=== PATIENT | male | born 1925 | race African-American/Black ===

== ENCOUNTER 2016-07-02 12:12 | Emergency (ER) | payer OTHER ==
--- NOTE | ~2016-07-02 | CO ---
Unit #: [id number] #: [id number] Patient: TARAH MOORE [id number] [address] [place], [place] [address] [id number] MR#: [id number] NAME: TARAH MOORE ROOM: Age: 89 Sex: M Admission Date: 07/02/2016 : 1925 Attending Physician: Siva Gibbs M.D. Primary Care Physician: Bear Figueroa M.D. Consultation Date: 07/02/2016 CONSULTATION REPORT HISTORY AND EXAM Mr. Moore is an 89-year-old gentleman who is a prison resident, who was sent to [facility] ER from the prison because of an unstageable but necrotic sacral pressure ulcer. Patient was unaccompanied by power of trust and estates attorney or any prison staff. He is demented and unable to answer any questions. It was noted on his medicine list that he was on Eliquis. 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 It is within 2 cm of the anal verge. I was asked to see the patient by the ER physicians and after examination, I called his family contact, . Cody Moore, explained the situation to Mr. Moore and told him that I felt that he needed to have a debridement if the family wanted to proceed but because of its proximity to the anal verge, fecal soiling was highly likely and that a diverting colostomy would probably be advantageous. Also, discussed with Mr. Moore that since he is on Eliquis that is going to need to be held prior to surgery to decrease his bleeding risk. I answered all of Mr. Moore's questions concerning his father. ALLERGIES No allergies to medication. PAST MEDICAL HISTORY 1. Hypertension. 2. Spontaneous pneumothorax. 3. Osteoarthritis. 4. Prostate cancer with bone mets. 5. Chronic urinary tract infections. 6. Chronic obstructive pulmonary disease. 7. Generalized muscle weakness with chronic pain. 8. Neoplasm of the kidney. 9. Hyperlipidemia. 10. Decreased vision. 11. Gout. 12. Chronic bronchitis. 13. Atherosclerotic coronary artery disease. 14. Depression. 15. Pressure sore. 16. Reflux. 17. Anxiety. 18. Allergic rhinitis. MEDICATIONS Unit #: [id number] #: [id number] Patient: TARAH MOORE Medications are listed as: 1. Cardizem 60 mg three times a day. 2. Voca 5 mg p.r.n. q.4 hours. 3. Allopurinol 100 mg daily. 4. Amiodarone 200 mg daily. 5. Aspirin 81 mg daily. 6. Eliquis 2.5 mg twice a day. 7. Bisacodyl 10 mg suppository p.r.n. 8. Proscar 5 mg daily. 9. Alfin 400 mg tablet daily. 10. Lactobacillus one capsule three times a day. 11. Lovastatin 20 mg daily. 12. Protonix 40 mg daily. 13. MiraLax 17 g daily. 14. Flomax 0.4 mg daily. 15. Trazodone 150 mg daily. 16. Ipratropium albuterol 0.5/3 mg nebulizer four times a day. 17. Tylenol p.r.n. 18. Betadine topical solution twice a day. 19. Prostat twice a day. 20. Vitamins, minerals. 21. Niferex 150 mg daily. 22. TwoCal High Nitrogen supplement feeding three times a day. 23. Zofran 4 mg p.r.n. 24. Vitamin D 50,000 units weekly. 25. Calcium citrate one tablet twice a day. 26. Remeron 15 mg daily. 27. Zoloft 100 mg daily. FAMILY HISTORY Unremarkable. SOCIAL HISTORY He is a prison resident. No tobacco or alcohol. REVIEW OF SYSTEMS Unobtainable. PHYSICAL EXAMINATION VITAL SIGNS: On examination in the emergency room, temperature is 98.6, pulse 83, respirations 24 and unlabored, blood pressure 129/68. GENERAL: Patient is alert but unable to have any meaningful response to questions. HEENT: Unremarkable. CARDIAC: Regular rhythm. LUNGS: Clear. ABDOMEN: Soft. EXTREMITIES: No edema. Stage IV sacral pressure ulcer. DIAGNOSTIC STUDIES LABORATORY: No laboratories. ASSESSMENT AND PLAN An 89-year-old prison resident with stage IV sacral pressure sore as discussed. I had a long discussion with the patient's son who is his primary healthcare surrogate and power of trust and estates attorney and discussed surgery to include debridement of the sacral decubitus and diverting colostomy. He is agreeable. Because the patient is anticoagulated, he will be sent Unit #: [id number] #: [id number] Patient: TARAH MOORE back to the prison. His anticoagulation held and he will be scheduled to come in the morning of surgery and admitted postoperatively. Dictated by... Mayda Baker TD: 07/02/2016 15:51 JOB #: [id number] CC: Bear Figueroa M.D. CONSULTATION REPORT Page 1 of 1 X Siva Fonseca MD X CONSULTATION REPORT
[~2016-07-02 12:12] MED LIST: ACULAR; ASPIRIN81 M2 PO; BRIMONIDINE; FLOMAX0.4 M1 PO; LOTENSIN20 MG PO; MEVACOR20 M1 PO; MULTI VITAMIN1 EACH PO; PRED FORTE1 ML OS; PREDNISOLONE; PROTONIX PO; THERAPEUTIC VIT1 TA3 PO; TIAZAC180 MG PO; VIGAMOX; ZYLOPRIM100 MG PO
[2016-07-16] MEDS ORDERED: CARDIZEM60 M1 PO (09:29)
[2016-07-16] MEDS ORDERED: AMIODARONE HCL200 MG (09:30)
[2016-07-16] MEDS ORDERED: GENTLE LAXATIVE10 MG PR (09:31)
[2016-07-16] MEDS ORDERED: ALLFEN400 MG PO (09:32)
[2016-07-16] MEDS ORDERED: PROSCAR5 MG PO (09:32)
[2016-07-16] MEDS ORDERED: ACIDOPHILUS1 EACH PO (09:33)
[2016-07-16] MEDS ORDERED: LOVASTATIN20 M1 PO (09:33)
[2016-07-16] MEDS ORDERED: MIRALAX119 GM PO (09:34)
[2016-07-16] MEDS ORDERED: DESYREL50 MG (09:35)
[2016-07-16] MEDS ORDERED: IPRAT-ALBUT 0.5-3 ML INH (09:36)
[2016-07-16] MEDS ORDERED: ACETAMINOPHEN500 M7 PO (09:36)
[2016-07-16] MEDS ORDERED: [UNRECOGNIZED DRUG - OTHER] (09:37)
[2016-07-16] MEDS ORDERED: VITAMIN D SL (09:38)
[2016-07-16] MEDS ORDERED: NIFEREX (09:38)
[2016-07-16] MEDS ORDERED: MINERALS SL (09:38)
[2016-07-16] MEDS ORDERED: CALCIUM CITRAT1 EAC4 PO (09:39)
[2016-07-16] MEDS ORDERED: ZOFRAN PO (09:39)
[2016-07-16] MEDS ORDERED: REMERON15 MG PO (09:40)
[2016-07-16] MEDS ORDERED: ELIQUIS2.5 MG PO (09:40)
[2016-07-16] MEDS ORDERED: ZOLOFT100 MG PO (09:40)
[2016-07-16] MEDS ORDERED: NORCO 7.5-3251 EACH PO (09:41)
[2016-07-16] MEDS ORDERED: ROCEPHIN IM (09:41)
[2016-07-16] MEDS ORDERED: VITAMIN D32000 UNI1 PO (09:42)
== END 2016-07-02 16:15 | disposition home or self-care (01) ==
LOC: CED 12:12
DX: L89.159 Pressure ulcer of sacral region, unspecified stage (principal); I10 Essential (primary) hypertension; J44.9 Chronic obstructive pulmonary disease, unspecified; Z79.82 Long term (current) use of aspirin; Z79.899 Other long term (current) drug therapy
CPT/HCPCS: 99283

== ENCOUNTER 2016-07-22 10:07 | Observation (INO) | payer OTHER ==
--- NOTE | ~2016-07-22 | EKG ---
PATIENT: TARAH MOORE UNIT #: [id number] Ventricular Rate: 78 BPM Atrial Rate: 78 BPM P-R Interval: 228 ms QRS Duration: 80 ms Q-T Interval: 396 ms QTC Calculation(Bezet): 451 ms P Austin: 57 degrees Calculated R Austin: 10 degrees Calculated T Austin: 12 degrees Diagnosis Line: Sinus rhythm with PAC'sin a pattern of bigeminy Diagnosis Line: Otherwise normal ECG Diagnosis Line: When compared with ECG of 17-JUL-2012 06:17, Diagnosis Line: Vent. rate has increased BY 26 BPM Diagnosis Line: Confirmed by MARIELENA HDZ MD ([id number]) on Diagnosis Line: 07/24/2016 1:05:04 PM INTERPRETING MD: CHARLY
--- NOTE | ~2016-07-22 | DS ---
Unit #: [id number] #: [id number] Patient: TARAH MOORE [id number] [address] [address] [id number] I MR#: [id number] NAME: TARAH MOORE ROOM: [facility] Age: 89 Sex: M Admission Date: 07/22/2016 : 1925 Discharge Date: 07/23/2016 Attending Physician: Siva Fonseca M.D. Primary Care Physician: Bear Figueroa M.D. DISCHARGE SUMMARY HISTORY Mr. Moore was brought into the hospital yesterday and taken directly to surgery for debridement of a chronic stage 4 sacral decubitus. Because of chronic fecal soiling, a diverting colostomy was also performed. He was kept overnight in the hospital to ensure that there was no bleeding from the wound and that his ostomy remained viable. This morning he is afebrile with stable vital signs. His ostomy is viable and functioning, and his sacral wound is clean. We will initiate dressing changes and allow the patient to return to the residential today. He will be discharged back to the residential today to return to his normal diet and medications. His urine appeared to have some sediment. A urinalysis was obtained, and it was consistent with possible urinary tract infection. Culture is pending at this time, but we will send him home on some Levaquin for 7 days. He is to follow up in my office in 2 weeks for wound check. There are no abdominal incisions that need care. Routine ostomy care at the residential can be performed. Dictated by... Siva Fonseca M.D. SHAYE/jony TD: 07/23/2016 12:07 JOB #: [id number] DISCHARGE SUMMARY Page 1 of 1 X Siva Fonseca MD DISCHARGE SUMMARY
[~2016-07-22 10:07] MED LIST changes: +ACETAMINOPHEN500 M7 PO; +ACIDOPHILUS1 EACH PO; +ALLFEN400 MG PO; +AMIODARONE HCL200 MG; +CALCIUM CITRAT1 EAC4 PO; +CARDIZEM60 M1 PO; +DESYREL50 MG; +ELIQUIS2.5 MG PO; +GENTLE LAXATIVE10 MG PR; +IPRAT-ALBUT 0.5-3 ML INH; +LOVASTATIN20 M1 PO; +MINERALS SL; +MIRALAX119 GM PO; +NIFEREX; +NORCO 7.5-3251 EACH PO; +PROSCAR5 MG PO; +REMERON15 MG PO; +ROCEPHIN IM; +VITAMIN D SL; +VITAMIN D32000 UNI1 PO; +ZOFRAN PO; +ZOLOFT100 MG PO; +[UNRECOGNIZED DRUG - OTHER]
[2016-07-22 12:00] LABS: BASOPHIL# 0.1 X10e3 (0-0.3); BASOPHIL% 1.3 % (0-2.5); EOSINOPHIL# 0.3 X10e3 (0-0.7); EOSINOPHIL% 3.7 % (0.0-7.0); HEMATOCRIT 27.8 % (38.0-50.0); HEMOGLOBIN 8.7 gm/dL (13.0-16.0); LYMPHOCYTE# 1.5 X10e3 (1.0-3.5); LYMPHOCYTE% 18.7 % (17.0-45.0); MEAN CELL VOLUME 82.4 FL (83-96); MEAN CORPUSCULAR HEMOGLOBIN 25.7 PG (28-34); MEAN CORPUSCULAR HGB CONC 31.2 g/dL (30-36); MEAN PLATELET VOLUME 8.1 FL (6.5-11.5); MONOCYTE# 0.7 X10e3 (0-1.0); MONOCYTE% 8.4 % (3.0-12.0); NEUTROPHIL# 5.4 X10e3 (1.5-7.1); NEUTROPHIL% 67.9 % (40-75); PLATELET COUNT 332 X10e3 (140-420); RED BLOOD COUNT 3.38 X10e (3.90-5.60); RED CELL DISTRIBUTION WIDTH 22.1 % (11.0-15.5); WHITE BLOOD COUNT 7.9 X10e3 (4.0-10.5)
[2016-07-22 12:01] LABS: DIFF IND YES
[2016-07-22 12:06] LABS: INR 1.1; PARTIAL THROMBOPLASTIN TIME 23.1 SECONDS (23.5-31.3)
[2016-07-22 12:29] LABS: PLATELET ESTIMATE NORMAL (NORMAL)
[2016-07-22 12:31] LABS: ACANTHOCYTES PRESENT; ELLIPTOCYTES PRESENT; HYPOCHROMIA MOD; SCHISTOCYTES PRESENT
[2016-07-22 12:32] LABS: POLYCHROMASIA SL
[2016-07-22 12:33] LABS: OVALOCYTES PRESENT; TARGET CELLS SL
[2016-07-22 16:57] LABS: URINE APPEARANCE CLEAR; URINE BILIRUBIN NEG (NEG); URINE BLOOD 3+ (NEG); URINE COLOR YELLOW; URINE GLUCOSE NEG (NEG); URINE KETONE NEG (NEG); URINE LEUKOCYTE ESTERASE 3+ (NEG); URINE NITRATE NEG (NEG); URINE PROTEIN 1+ (NEG); URINE SPECIFIC GRAVITY 1.024 (1.003-1.035); URINE UROBILINOGEN 0.2 MG/DL (NEG)
[2016-07-22 16:59] LABS: CULTURE INDICATED? YES; URBCS1 AUWI 200-300 /[HPF] (0-2); URINE BACTERIA AUWI NEG (NEGATIVE); URINE SQUAMOUS EPITHELIAL CELL FEW /[HPF]; UWBCS1 AUWI 25-50 (0-5)
== END 2016-07-23 15:50 ==
LOC: CSUR 10:07 → C4C 14:44 → CPACUOF 14:44 → CSUR 14:44 → C4C 15:22 → CPACUOF 15:22 → C4C 20:59 → CPACUOF 20:59 → C4C 07-23 15:50
PROVIDERS: Specialist
DX: L89.154 Pressure ulcer of sacral region, stage 4 (principal); R15.1 Fecal smearing; C61 Malignant neoplasm of prostate; C79.51 Secondary malignant neoplasm of bone; Z23 Encounter for immunization; I10 Essential (primary) hypertension; J44.9 Chronic obstructive pulmonary disease, unspecified; M19.90 Unspecified osteoarthritis, unspecified site; E78.5 Hyperlipidemia, unspecified; K21.9 Gastro-esophageal reflux disease without esophagitis; I25.10 Atherosclerotic heart disease of native coronary artery without angina pectoris; Z79.01 Long term (current) use of anticoagulants; F41.9 Anxiety disorder, unspecified
CPT/HCPCS: 81003; 82947; 85025; 85610; 85730; 86850; 86900; 86901; 87086; 90732; 93005; C1713; G0009; G0378; J2543; J2710; J3010

== ENCOUNTER 2016-07-27 10:38 | Inpatient (IN) | payer OTHER ==
--- NOTE | ~2016-07-27 | CR7 ---
[facility] A Service of [facility] & [facility] RADIOLOGY TEXT RESULTS PATIENT: TARAH MOORE LOCATION: [address] : [birth year] UNIT #: [id number] AGE: [address]: Eugenia Mercedes MD SEX: M ORDER DR: [id number] [facility] [address] [facility]. [place], [place] [address] [id number] I MR#: [id number] Acc #: [id number] NAME: TARAH MOORE : 1925 SEX: M STUDY DATE/TIME: 07/31/2016 3:11 UNIT: [facility] ROOM: [facility] STUDY DESCRIPTION: CR Abdomen Single AP View Attending Physician: Eugenia Mercedes M.D. Ordering Physician: Eugenia Mercedes M.D. Primary Care Physician: Bear Figueroa M.D. MEDICAL IMAGING REPORT This report is preliminary unless electronic signature is present EXAM Portable abdomen INDICATION Nasogastric tube placement. FINDINGS This portable view of the upper abdomen and chest shows the nasogastric tube has its tip in the antrum of the stomach. What appears to be fibrosis in the lungs is stable and the endotracheal tube has its tip 1 cm above the bassam. Dictated by... Damien Garcia M.D. THIS IS AN ELECTRONICALLY VERIFIED REPORT Damien Garcia M.D. at 07/31/2016 1:31 PM HERO/azch TD: 07/31/2016 10:09 JOB #: [id number] MEDICAL IMAGING REPORT Page 1 of 1 COPY
--- NOTE | ~2016-07-27 | CR72 ---
[facility] A Service of [facility] & [facility] RADIOLOGY TEXT RESULTS PATIENT: TARAH MOORE LOCATION: [address] : [birth year] UNIT #: [id number] AGE: [address]: Eugenia Mercedes MD SEX: M ORDER DR: [id number] [facility] [address] [facility]. [place], [place] [address] [id number] I MR#: [id number] Acc #: [id number] NAME: TARAH MOORE : 1925 SEX: M STUDY DATE/TIME: 08/01/2016 19:47 UNIT: [facility] ROOM: [facility] STUDY DESCRIPTION: CR Chest Single View Portable Attending Physician: Eugenia Mercedes M.D. Ordering Physician: Eugenia Mercedes M.D. Primary Care Physician: Bear Figueroa M.D. MEDICAL IMAGING REPORT This report is preliminary unless electronic signature is present EXAM Portable chest x-ray 08/01/[address] that placed chest tube has seen x-ray. [Line PNA]. FINDINGS AP radiograph of the chest in right anterior-oblique projection presented. Comparison 08/01/2016 2055 hours. Right internal jugular central venous catheter terminates in upper to mid right atrium. For placement entirely within the superior vena cava ,it could be withdrawn approximately 4 cm and reassessed radiographically. Endotracheal tube unchanged. Enteric tube extends below diaphragm and off field of radiograph. Right pleural drain unchanged. Cardiomediastinal contours stable. Lung volumes moderate. Extensive interstitial and airspace densities throughout the lungs bilaterally. Some decrease in confluent airspace densities bilateral [id number] lung zones. The appearance may in part reflect underlying chronic fibrotic change. Areas of superimposed pneumonia or edema could be considered. There is a suggestion of a small right-sided pneumothorax within the lateral aspect of the right major fissure measuring in frontal projection 1 cm x 1.6 cm. This could be a projectional artifact but I favor small pneumothorax. No underlying increase in volume loss in the right lung as a consequence. Attention at followup recommended. There may be a small right pleural effusion versus chronic pleural thickening. No left effusion. No left pneumothorax. Dictated by... Rodrigo Laguerre M.D. THIS IS AN ELECTRONICALLY VERIFIED REPORT Rodrigo Laguerre M.D. at 08/02/2016 8:14 AM [facility] A Service of [facility] RADIOLOGY TEXT RESULTS PATIENT: TARAH MOORE LOCATION: [place] [address]09 : [birth year] UNIT #: [id number] AGE: [address]: Eugenia Mercedes MD SEX: M ORDER DR: ABIODUN/zach TD: 08/02/2016 06:35 JOB #: [id number] MEDICAL IMAGING REPORT Page 1 of 1 COPY
--- NOTE | ~2016-07-27 | CR6 ---
[facility] A Service of [facility] RADIOLOGY TEXT RESULTS PATIENT: TARAH MOORE [facility] [birth year] UNIT #: [id number] AGE: [address]: Eugenia Mercedes MD SEX: M ORDER DR: [id number] [place] [id number] [facility] [place], [place] [address] [id number] I MR#: [id number] Acc #: [id number] NAME: TARAH MOORE : 1925 SEX: M STUDY DATE/TIME: 08/03/2016 17:20 UNIT: [facility] ROOM: [facility] STUDY DESCRIPTION: CR Abdomen Portable Sng View Attending Physician: Eugenia Mercedes M.D. Ordering Physician: Eugenia Mercedes M.D. Primary Care Physician: Bear Figueroa M.D. MEDICAL IMAGING REPORT This report is preliminary unless electronic signature is present EXAM Abdomen single view, 08/03/2016 1720 hours HISTORY Patient unable to eat, feeding tube placement today, history of prostate cancer. COMPARISON 08/03/2016 0507 hours FINDINGS Single supine view of the abdomen includes much of the chest but excludes the lower abdomen and the flanks. There is an enteric tube present with tip directed rightward in the right upper quadrant, likely at or near the pylorus. There is a right chest tube, endotracheal tube and right IJ catheter, unchanged. IMPRESSION Limited film demonstrates the tip of the enteric tube directed rightward in the right mid abdomen. It is likely at or near the pylorus. Dictated by... Liz Baires M.D. THIS IS AN ELECTRONICALLY VERIFIED REPORT Liz Baires M.D. at 08/04/2016 9:33 AM RANDY/tamera TD: 08/03/2016 20:54 JOB #: [id number] MEDICAL IMAGING REPORT [facility] A Service of [facility] RADIOLOGY TEXT RESULTS PATIENT: TARAH MOORE LOCATION: [facility] C[facility]CU2-09 : [birth year] UNIT #: [id number] AGE: [address]: Eugenia Mercedes MD SEX: M ORDER DR: Page 1 of 1 COPY
--- NOTE | ~2016-07-27 | CR72 ---
[facility] A Service of [facility] & [facility] RADIOLOGY TEXT RESULTS PATIENT: TARAH MOORE LOCATION: [address] : [birth year] UNIT #: [id number] AGE: [address]: Eugenia Mercedes MD SEX: M ORDER DR: [id number] [facility] [address] [facility]. [place], [place] [address] [id number] I MR#: [id number] Acc #: [id number] NAME: TARAH MOORE : 1925 SEX: M STUDY DATE/TIME: 08/01/2016 17:48 UNIT: [facility] ROOM: [facility] STUDY DESCRIPTION: CR Chest Single View Portable Attending Physician: Eugenia Mercedes M.D. Ordering Physician: Eugenia Mercedes M.D. Primary Care Physician: Bear Figueroa M.D. MEDICAL IMAGING REPORT This report is preliminary unless electronic signature is present EXAM Single view of the chest dated 08/01/2016 17:48 hours. COMPARISON Single view chest dated 08/01/1969 at 08:20 hours. HISTORY Status post exchange of endotracheal tube with shortness of air today. Admission for pneumonia. FINDINGS Frontal view of the chest was obtained. Tip of the endotracheal tube has further advanced when compared to the prior study from earlier and the tip is now at the proximal portion of the right mainstem bronchus. It has to be pulled back by another 2.5 to 3 cm. Next, there is interval new lucency noted along the inferior aspect of the right lung and along its medial aspect between the lung and the right heart border. The heart is displaced to the left. This finding is suggestive of moderate pneumothorax. There is moderate collapse of the adjacent right lung. Diffusely prominent interstitial and alveolar opacities are noted in the right lung. The left lung itself is relatively stable with interstitial and alveolar disease. Right IJ approach PICC line catheter tip is in the region of the cavoatrial junction. There are multiple wires and leads overlying the patient limiting evaluation. There is probably an NG tube extending to the stomach, incompletely included in the current study. Next, attempts are made to contact Dr. Mercedes. Findings of both pneumothorax was discussed with Dr. Marshall, ER physician during the time of dictation. The findings of the endotracheal tube in the origin of the right mainstem bronchus were shared with physician catering administrative assistant Kim harp. [facility] A Service of [facility] RADIOLOGY TEXT RESULTS PATIENT: TARAH MOORE [facility] [birth year] UNIT #: [id number] AGE: [address]: Eugenia Mercedes MD SEX: M ORDER DR: Dictated by... Amita Hendrickson M.D. THIS IS AN ELECTRONICALLY VERIFIED REPORT Amita Hendrickson M.D. at 08/02/2016 5:13 PM CPR/cmm TD: 08/02/2016 07:18 JOB #: [id number] MEDICAL IMAGING REPORT Page 1 of 1 COPY
--- NOTE | ~2016-07-27 | EKG ---
PATIENT: TARAH MOORE UNIT #: [id number] Ventricular Rate: 97 BPM Atrial Rate: 111 BPM QRS Duration: 100 ms Q-T Interval: 358 ms QTC Calculation(Bezet): 454 ms Calculated R [place]ge[place]: 5 degrees Calculated T [place]: 26 degrees Diagnosis Line: Sinus rhythm with first degree AV block and PAC's Diagnosis Line: RSR' or QR pattern in V1 suggests right Diagnosis Line: ventricular conduction delay Diagnosis Line: Nonspecific T wave abnormality , probably Diagnosis Line: digitalis effect Diagnosis Line: Abnormal ECG Diagnosis Line: When compared with ECG of 31-JUL-2016 16:33, Diagnosis Line: No significant change was found Diagnosis Line: Diagnosis Line: Confirmed by MARIELENA HDZ MD ([id number]) on Diagnosis Line: 08/02/2016 5:53:21 PM INTERPRETING MD: CHARLY
--- NOTE | ~2016-07-27 | CR72 ---
[facility] A Service of [facility] & [facility] RADIOLOGY TEXT RESULTS PATIENT: TARAH MOORE LOCATION: [address] : [birth year] UNIT #: [id number] AGE: [address]: Eugenia Mercedes MD SEX: M ORDER DR: [id number] [facility] [address] [facility]. [place], [place] [address] [id number] I MR#: [id number] Acc #: [id number] NAME: TARAH MOORE : 1925 SEX: M STUDY DATE/TIME: 08/03/2016 5:06 UNIT: [facility] ROOM: [facility] STUDY DESCRIPTION: CR Chest Single View Portable Attending Physician: Eugenia Mercedes M.D. Ordering Physician: Janina Kline A.P.R.N. Primary Care Physician: Bear Figueroa M.D. MEDICAL IMAGING REPORT This report is preliminary unless electronic signature is present EXAM Portable chest HISTORY Shortness of air for a few days. FINDINGS This portable view of the chest shows no change in the endotracheal tube, central venous catheter or right chest tube. There are bilateral interstitial abnormalities that probably represent fibrosis and the patient may be developing some focal infiltrate in the right mid lung. Dictated by... Damien Garcia M.D. THIS IS AN ELECTRONICALLY VERIFIED REPORT Damien Garcia M.D. at 08/03/2016 1:22 PM HERO/cedric TD: 08/03/2016 10:40 JOB #: [id number] MEDICAL IMAGING REPORT Page 1 of 1 COPY
--- NOTE | ~2016-07-27 | DS ---
Unit #: [id number] #: [id number] Patient: TARAH MOORE [id number] [address] [address] [id number] I MR#: [id number] NAME: TARAH MOORE ROOM: [facility] Age: 89 Sex: M Admission Date: 07/27/2016 : 1925 Discharge Date: 08/04/2016 Attending Physician: Eugenia Mercedes M.D. Primary Care Physician: Bear Figueroa M.D. DISCHARGE SUMMARY SUMMARY DATE OF ADMISSION 07/27/2016 DATE OF 08/04/2016 FINAL DIAGNOSES 1. Acute respiratory failure. 2. Sepsis. 3. Pneumonia. 4. Acute kidney injury. 5. Severe anemia. 6. Moderate pulmonary hypertension. 7. Right chest tube for pneumothorax. 8. Atrial fibrillation. 9. Acute coronary syndrome. 10. History of prostate cancer in 1988, status post radiation. 11. History of alcohol abuse and tobacco abuse. HOSPITAL COURSE Patient was admitted to hospital with above diagnosis, admitted to ICU. Patient continued to deteriorate. Patient's family decided for DNR status and terminal extubation. Patient was extubated on 08/04/2016 and he the same day. The patient's family was very much aware of patient's poor condition and poor prognosis. Dictated by... Mayda Hartmann/jordy TD: 09/28/2016 12:44 JOB #: [id number] Unit #: [id number] #: [id number] Patient: TARAH MOORE DISCHARGE SUMMARY Page 1 of 1 X Eugenia Mercedes MD DISCHARGE SUMMARY
--- NOTE | ~2016-07-27 | OR ---
Unit #: [id number] #: [id number] Patient: TARAH MOORE [id number] [place] [id number] [facility]. [place], [place] [address] [id number] I MR#: [id number] NAME: TARAH MOORE ROOM: 325 Date of Procedure: 07/28/2016 Admission Date: 07/27/2016 Surgeon: Stephane Parkinson M.D. : 1925 Attending Physician: Eugenia Mercedes M.D. Primary Care Physician: Bear Figueroa M.D. OPERATIVE REPORT PRIMARY CARE PHYSICIAN Bear Figueroa M.D. PREOPERATIVE DIAGNOSES Severe iron deficiency anemia. The patient also has anemia of renal disease. He is extremely frail and has lost weight. PROCEDURES PERFORMED Upper gastrointestinal endoscopy. POSTOPERATIVE DIAGNOSES The patient had some food residue in the markedly dilated esophagus. 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 The rest of the examination up to third part of duodenum was normal. RECOMMENDATIONS In the absence of any specific symptoms, consider supportive and symptomatic treatment. If the patient does have significant dysphagia on swallow evaluation, then Botox injection of the distal esophagus or ileus will be entertained. The patient is too frail to undergo colonoscopy and this is unwarranted. Therefore, symptomatic treatments, iron infusion and packed cell transfusions is needed. SEDATION USED MAC. DESCRIPTION OF PROCEDURE Following detailed explanation of the potential risks and complications of an upper endoscopy, namely perforation, bleeding, and complication related to sedation, the patient was brought to GI lab and laid in the left lateral decubitus position. Lubricated tip of the Olympus video upper endoscope was passed through the bite block into the proximal esophagus under direct vision. The entire esophageal mucosa was examined and the patient was noted to have markedly dilated esophagus along with food residue, which was present in the mid and distal esophagus as well as proximal esophagus. This indicated poor clearance of the esophagus. Distal esophagus narrowed to a smooth tapered opening, there being no stricture. The scope was then advanced into the gastric cavity and the latter was insufflated. Mucosa of the fundus, body, and antrum was examined and appeared unremarkable. Pylorus was intubated with visualization of the normal duodenal bulb and second and third part of the duodenum. Upon withdrawal and retroflexion, incisura, cardia, and greater Unit #: [id number] #: [id number] Patient: TARAH MOORE curve were examined and no additional findings noted. The scope was then withdrawn into the distal esophagus. The entire esophageal mucosa was examined all the way up to pharynx, no additional findings noted. The patient tolerated the procedure without any postprocedure complications. Dictated by... Mayda Hay TD: 07/29/2016 06:20 JOB #: [id number] OPERATIVE REPORT Page 1 of 1 X Stephane Parkinson MD X PROCEDURE OPERATIVE NOTE
--- NOTE | ~2016-07-27 | CO ---
Unit #: [id number] #: [id number] Patient: TARAH MOORE [id number] [address] [place], [place] [address] [id number] MR#: [id number] NAME: TARAH MOORE ROOM: [facility] Age: 89 Sex: M Admission Date: 07/27/2016 : 1925 Attending Physician: Eugenia Mercedes M.D. Primary Care Physician: Bear Figueroa M.D. Consultation Date: 08/01/2016 CONSULTATION REPORT REASON FOR CONSULT Elevated troponin. HISTORY OF PRESENT ILLNESS This is an 89-year-old male, previously known to our group with hospitalization in 2012, for chest pain. The patient's symptoms were atypical. Lexiscan Cardiolite stress test was completed on 07/05/2012, which revealed no ischemia with an ejection fraction of 59%. A 2D echocardiogram June 2012, revealed an ejection fraction of 65% to 70%. Additional past medical history includes hypertension; hyperlipidemia; possible paroxysmal atrial fibrillation of unknown details; prostate cancer, status post radiation; GERD; arthritis; and previous tobacco abuse. The patient is a retirement resident. He was recently treated by Dr. Fonseca for stage IV sacral decubitus and underwent a debridement , coccygectomy, and diverting sigmoid colostomy on 07/22/2016. He was brought in through the emergency department with altered mental status. He was found to have a lactic acid of 1.3. Ammonia was 30. Potassium was 4.5. Creatinine 1.0. White blood cell count was mildly elevated at 11.2. Hemoglobin was low at 6.9 and hematocrit 22.5. Chest x-ray revealed underlying emphysema with new mixed interstitial and airspace changes in the right upper lobe, right lung base, and left perihilar region. He was admitted for acute respiratory failure, pneumonia, and dementia. On 07/28/2016, he underwent an EGD, due to severe iron-deficiency anemia. The patient had some food residue and markedly dilated esophagus. Rest of the exam was normal. He was intubated and given IV fluids and tube feedings. He was placed on steroids and antibiotics. Cardiac markers were elevated and Cardiology was consulted. There are no family at the bedside, and the patient is currently sedated on a vent. It is unclear if he has any chest pain or symptoms of angina. Troponin is 0.25 and 0.21. Electrocardiogram reveals sinus rhythm with a PVC and low-voltage QRS. There is some ST and T-wave abnormality in the anterior leads. PAST MEDICAL HISTORY 1. Lexiscan Cardiolite stress test July 05, 2012, revealed no ischemia. Ejection fraction of 59%. 2. A 2D echocardiogram July 05, 2012, revealed an ejection fraction of 65% to 70%. 3. Hypertension. 4. Hyperlipidemia. 5. History of irregular heartbeat with questionable paroxysmal atrial fibrillation, details unavailable. 6. GERD. 7. Prostate cancer in 1988, status post radiation. 8. Osteoarthritis. Unit #: [id number] #: [id number] Patient: TARAH MOORE 9. History of alcohol abuse. 10. [facility] resident. 11. Dementia. 12. Gout. 13. Reformed tobacco abuse and alcohol abuse.. HOME MEDICATIONS 1. Aspirin 81 mg p.o. daily. 2. Protonix 40 mg p.o. daily. 3. Flomax 0.4 mg p.o. daily. 4. Allopurinol 100 mg p.o. daily. 5. Cardizem 60 mg p.o. 3 times daily. 6. Amiodarone 200 mg p.o. daily. 7. Bisacodyl 10 mg p.r. daily p.r.n. for constipation. 8. Proscar 5 mg p.o. daily. 9. Lactobacillus one p.o. 3 times daily. 10. Lovastatin 20 mg p.o. daily. 11. MiraLAX 17 g p.o. daily. 12. Trazodone 150 mg p.o. daily. 13. Ipratropium/albuterol 3 mL inhalation 4 times daily. 14. Acetaminophen 500 mg p.o. every 6 hours p.r.n. for pain. 15. Vitamin D and minerals one tablet p.o. daily. 16. Niferex 150 mg p.o. daily. 17. Zofran 4 mg p.o. every 6 hours p.r.n. for nausea. 18. Calcium citrate one tablet p.o. b.i.d. 19. Remeron 15 mg p.o. daily. 20. Zoloft 100 mg p.o. daily. 21. Eliquis 2.5 mg p.o. b.i.d. 22. [place] 7.5/325 mg one tablet p.o. q.4hours p.r.n. 23. Vitamin D3 of 2000 units p.o. daily. ALLERGIES No known drug allergies. SOCIAL HISTORY The patient resides in a retirement. He is a reformed smoker. There is a history of alcohol abuse but none currently. There are no reports of illicit drug use. FAMILY HISTORY Significant for hypertension. REVIEW OF SYSTEMS Difficult to obtain per patient. PHYSICAL EXAMINATION VITAL SIGNS: Temperature 98.1, pulse 89, and blood pressure 90/47. CONSTITUTIONAL: This is an 89-year-old, male, who is sedated on the vent. SKIN: Warm and dry. NECK: Supple. No jugular vein distention. No hepatojugular reflux. Normal carotid upstrokes. No carotid bruits auscultated. HEART: S1 and S2. Regular rate and rhythm. No murmurs, rubs, or gallops. LUNGS: Bilateral breath sounds have course rhonchi in both lungs. Fine rales. ABDOMEN: Soft, nontender, and nondistended. Positive bowel sounds auscultated x4 quadrants. No ascites noted. Unit #: [id number] #: [id number] Patient: TARAH MOORE EXTREMITIES: Bilateral lower extremities have no pretibial pitting edema. DP and PT pulses are 2+. Capillary refill is less than 2 seconds. DIAGNOSTIC STUDIES LABORATORY RESULTS: White blood cell count 13.9, hemoglobin 8.1, hematocrit 25.7, and platelets 177. Sodium 143, potassium 3.5, chloride 114, CO2 of 19, BUN 30, creatinine 1.7, and glucose 126. AST 154, ALT 128, and alkaline phos 89. Total protein 4.7, albumin 1.7, and magnesium 2.2. Troponin 0.05 and 0.25. Urinalysis: Positive for 2+ leuks and trace protein. Blood cultures: One out of two sets growing cornea bacterium probably from skin contaminant. IMAGING STUDIES: Chest x-ray on August 01, 2016, reveals bilateral diffuse infiltrates and fibrosis. CT of the head without contrast reveals generalized atrophy. Chronic ischemic changes. Extensive atherosclerotic calcifications of the carotid siphons and vertebrals. Sinus disease involving the maxillary, ethmoid, and sphenoid sinuses. CARDIOVASCULAR STUDIES: Electrocardiogram reveals sinus rhythm with a ventricular rate of 77 beats per minute. Low-voltage QRS. Nonspecific ST-T wave changes. T-wave abnormality in the anterior leads. QTc 402 milliseconds. IMPRESSION 1. Acute coronary syndrome with anterior wall ischemia. 2. Elevated troponin. 3. Acute respiratory failure, on ventilator. 4. Pulmonary edema and mild atelectasis in the right lung. 5. Peripheral vascular disease. 6. Anemia, questionably nutritional. No evidence of gastrointestinal bleed. 7. Status post esophagogastroduodenoscopy with achalasia on 07/28/2016. 8. Stage IV sacral decubitus with history of recent excisional debridement, coccygectomy, and diverting sigmoid colostomy on July 22, 2016. PLAN 1. The patient presented to the hospital with altered mental status and respiratory failure. He was intubated and transferred to the intensive care unit. 2. He is being treated for pneumonia and anemia. 3. Cardiology was consulted for elevated troponin. The patient has an abnormal EKG with anterior wall ischemia. We will start aspirin, Plavix, Lovenox, and high-dose statin. 4. We will continue IV fluids at 50 mL/hour. 5. Will initiate strict intake and output and fluid restriction. 6. Zero cardiac enzymes and EKG will be obtained. 7. The patient will be placed on IV diuretics for volume overload. 8. Further recommendations are pending hospital course. Dictated by... Marina Faustin APRN for Brian Zavala M.D. Unit #: [id number] #: [id number] Patient: TARAH MOORE SHAYLA/damir TD: 08/03/2016 13:26 JOB #: [id number] CONSULTATION REPORT Page 1 of 1 X X CONSULTATION REPORT
--- NOTE | ~2016-07-27 | EKG ---
PATIENT: TARAH MOORE UNIT #: [id number] Ventricular Rate: 105 BPM Atrial Rate: 105 BPM P-R Interval: 208 ms QRS Duration: 88 ms Q-T Interval: 386 ms QTC Calculation(Bezet): 510 ms P [place]: 90 degrees Calculated R [place]: -7 degrees Calculated T [place]: 38 degrees Diagnosis Line: Sinus tachycardia Diagnosis Line: Low voltage QRS Diagnosis Line: Nonspecific ST and T wave abnormality Diagnosis Line: Abnormal ECG Diagnosis Line: When compared with ECG of 02-AUG-2016 05:53, Diagnosis Line: (unconfirmed) Diagnosis Line: Sinus rhythm has replaced Atrial fibrillation Diagnosis Line: Diagnosis Line: Diagnosis Line: Confirmed by MARIELENA HDZ MD ([id number]) on Diagnosis Line: 08/03/2016 9:10:29 PM INTERPRETING MD: CHARLY
--- NOTE | ~2016-07-27 | EKG ---
PATIENT: TARAH MOORE UNIT #: [id number] Ventricular Rate: 86 BPM Atrial Rate: 86 BPM P-R Interval: 180 ms QRS Duration: 86 ms Q-T Interval: 422 ms QTC Calculation(Bezet): 504 ms P [place]: 65 degrees Calculated R [place]: 13 degrees Calculated T [place]: 2 degrees Diagnosis Line: Sinus rhythm with occasional Premature atrial Diagnosis Line: complexes Diagnosis Line: Low voltage QRS Diagnosis Line: Septal infarct (cited on or before 31-JUL-2016) Diagnosis Line: ST and T wave abnormality, consider anterior Diagnosis Line: ischemia Diagnosis Line: Prolonged QT Diagnosis Line: Abnormal ECG Diagnosis Line: When compared with ECG of 31-JUL-2016 01:10, Diagnosis Line: (unconfirmed) Diagnosis Line: Sinus rhythm has replaced Junctional rhythm Diagnosis Line: Serial changes of Septal infarct Present Diagnosis Line: Confirmed by CLARA DWYER MD ([id number]) on 08/01/2016 Diagnosis Line: 4:47:14 PM INTERPRETING MD: YULIYA METCALF
--- NOTE | ~2016-07-27 | OR ---
Unit #: [id number] #: [id number] Patient: TARAH MOORE [id number] [facility]. [place], [place] [address] [id number] MR#: [id number] NAME: TARAH MOORE ROOM: Date of Procedure: 07/22/2016 Admission Date: 07/27/2016 Surgeon: Siva Fonseca M.D. : 1925 Attending Physician: Niranjan Manzano M.D. Primary Care Physician: Bear Figueroa M.D. OPERATIVE REPORT PREOPERATIVE DIAGNOSIS Stage IV sacral decubitus with chronic fecal soilage. POSTOPERATIVE DIAGNOSIS Stage IV sacral decubitus with chronic fecal soilage. PROCEDURES PERFORMED Sharp excisional debridement of stage IV sacral decubitus with coccygectomy, diverting sigmoid colostomy. ANESTHESIA General endotracheal anesthesia. ESTIMATED BLOOD LOSS 30 mL. INDICATIONS FOR PROCEDURE An 89-year-old gentleman was sent to the hospital by the halfway physician, because of a stage IV sacral decubitus. On examination, he was having chronic fecal soilage and after discussion with the family, we plan on doing debridement of the decubitus and a diverting colostomy. DESCRIPTION OF PROCEDURE The patient was admitted to [facility], positively identified, transported to the operating room, and after induction of general endotracheal anesthesia, he was placed in the prone position with appropriate padding. After being prepped and draped in usual sterile fashion, using a 10 blade, circumferential full-thickness debridement down to the level of the sacrum was performed. Because the coccyx was malformed and elevated above the level of the soft tissue due to tissue loss, a coccygectomy was performed using a bone cutter and a file to smooth off the rough edges. The coccyx was debrided down below the level of the soft tissue to allow granulation and coverage of the area. Once I had obtained hemostasis, after completion of the debridement, the wound was packed with Kerlix soaked in Betadine. A #1 Vicryl sutures were used as stay sutures to keep the packing in position for the rest of the case. ABD pads and foam tape were used as a dressing. The patient was then placed in the operating room table in the supine position and again the abdomen was prepped and draped in usual sterile fashion. A transverse incision was made over the left rectus muscle below the level of the umbilicus. I dissected down and opened the anterior rectus sheath, spread the rectus muscle, grasped and elevated the posterior sheath and Unit #: [id number] #: [id number] Patient: TARAH MOORE peritoneum and sharply incised entering the peritoneal cavity. Sigmoid colon was identified, mobilized, and brought up through the wound. A window was made in the mesentery and a AARON stapler was used to divide the sigmoid colon. The distal colon was dropped back into the peritoneal cavity and the proximal colon was opened and matured with 3-0 Vicryl sutures. Once the stoma was matured, Mastisol and a stoma bag were placed. Sponges and needle counts were correct x3. The patient tolerated the procedure well, was transported to recovery in stable condition. Because of the hour of the day, he will be observed overnight for pain control and sent back to the halfway in the morning. Dictated by... Mayda Baker/damir TD: 07/22/2016 16:41 JOB #: [id number] OPERATIVE REPORT Page 1 of 1 X Siva Fonseca MD PROCEDURE OPERATIVE NOTE
--- NOTE | ~2016-07-27 | CR72 ---
[facility] A Service of [facility] & [facility] RADIOLOGY TEXT RESULTS PATIENT: TARAH MOORE LOCATION: [address] : [birth year] UNIT #: [id number] AGE: [address]: Eugenia Mercedes MD SEX: M ORDER DR: [id number] [facility] [address] [facility]. [place], [place] [address] [id number] I MR#: [id number] Acc #: [id number] NAME: TARAH MOORE : 1925 SEX: M STUDY DATE/TIME: 08/01/2016 20:55 UNIT: [facility] ROOM: [facility] STUDY DESCRIPTION: CR Chest Single View Portable Attending Physician: Eugenia Mercedes M.D. Ordering Physician: Miky Washington M.D. Primary Care Physician: Bear Figueroa M.D. MEDICAL IMAGING REPORT This report is preliminary unless electronic signature is present EXAM Frontal view of the chest dated 08/01/2016 at 20:55 hours. COMPARISON Frontal view of the chest dated 08/01/2016 at 19:47 and 17: hours. HISTORY Patient has history of pneumonia and congestion tonight. He ended up with pneumothorax and chest tube tonight. FINDINGS Frontal view of the chest was obtained. Right-sided chest tube is in place. Previously noted pneumothorax at 17:48 hours today evening has significantly improved after the chest tube placement. There is however a patchy new alveolar infiltrates when compared to the chest x-ray dated subsequently and 19:47 hours. Diffuse bilateral scattered interstitial and alveolar opacities are again seen. Tip of the endotracheal tube is about 2 cm from the presumed bassam. The right IJ approach PICC line catheter is in the region of the cavoatrial junction close to the right atrium, stable. There is probably an NG tube with the tip in the region of the distal body of the stomach. Dictated by... Amita Hendrickson M.D. THIS IS AN ELECTRONICALLY VERIFIED REPORT Amita Hendrickson M.D. at 08/02/2016 5:14 PM CPR/cmm TD: 08/02/2016 07:49 JOB #: [id number] [facility] Service of [facility] & [facility] RADIOLOGY TEXT RESULTS PATIENT: TARAH MOORE LOCATION: [facility] : [birth year] UNIT #: [id number] AGE: [address]: Eugenia Mercedes MD SEX: M ORDER DR: MEDICAL IMAGING REPORT Page 1 of 1 COPY
--- NOTE | ~2016-07-27 | HP ---
Unit #: [id number] #: [id number] Patient: TARAH MOORE [id number] [address] [address] [id number] I MR#: [id number] NAME: TARAH MOORE ROOM: 325 Age: 89 Sex: M Admission Date: 07/27/2016 : 1925 Attending Physician: Eugenia Mercedes M.D. Primary Care Physician: Bear Figueroa M.D. HISTORY AND PHYSICAL CHIEF COMPLAINT Decreased mental status, unresponsiveness. HISTORY OF PRESENT ILLNESS The patient is an 89-year-old male with multiple medical problems. He was recently discharged from the hospital by Dr. Fonseca after he had sharp excisional debridement of the stage 4 sacral decubitus with coccygectomy and diverting sigmoid colostomy done on 07/22/2016. The patient resides in the fdc. He was found to be very confused and unresponsive. His saturation was decreasing and he was having trouble breathing with cough. The patient was sent to the emergency room for further evaluation. The patient was found to have hemoglobin of 6.9. Chest x-ray showed pneumonia. The patient was admitted to [facility]. The patient is a very poor historian. Most of the history was taken from the emergency room notes. PAST MEDICAL HISTORY 1. History of hypertension. 2. Hyperlipidemia. 3. Chronic obstructive pulmonary disease. 4. Remote prostate cancer. 5. History of tobacco abuse and alcohol abuse in the past. PAST SURGICAL HISTORY 1. History of diverting colostomy because of large decubitus ulcer in 07/2016. 2. History of hemorrhoidectomy. 3. History of hip surgery. 4. History of partial lobectomy on the right side. 5. History of coccyx debridement. SOCIAL HISTORY The patient lives in a fdc. At this time no history of smoking or alcohol use. FAMILY HISTORY Unremarkable. HOME MEDICATIONS 1. Aspirin 81 mg daily. 2. Protonix 40 mg daily. 3. Flomax 0.4 mg daily. 4. Zyloprim 100 mg daily. 5. Cardizem 60 mg t.i.d. Unit #: [id number] #: [id number] Patient: TARAH MOORE 6. Amiodarone 200 mg daily. 7. Gentle laxative PA daily. 8. Proscar 5 mg daily. 9. Acidophilus 1 tablet t.i.d. 10. Lovastatin 20 mg daily. 11. MiraLAX 17 g daily. 12. Desyrel 150 mg daily. 13. Mini-Neb treatment q.i.d. 14. Tylenol 500 mg q.6 h. 15. Vitamin D daily. 16. Niferex 150 mg daily. 17. Zofran 4 mg q.6 h. p.r.n. 18. Remeron 15 mg daily. 19. Zoloft 100 mg daily. 20. Eliquis 2.5 mg b.i.d. 21. [place] 7.5/325 mg 1 tablet q.4 h. p.r.n. 22. Vitamin D3 2000 units daily. REVIEW OF SYSTEMS Not much is obtainable as there is no family member available on admission. PHYSICAL EXAMINATION GENERAL: The patient is lying in bed, very cachectic appearing. No acute distress. VITALS: Respiratory rate 18, pulse 75, blood pressure 107/44, pulse 75. HEENT: Head is normocephalic. Pupils are reacting to light. NECK: Supple. CHEST: Very limited exam. Rhonchi is present. Some scattered wheezing is present for cough. HEART: Regular rhythm. ABDOMEN: Soft. Nontender. EXTREMITIES: No cyanosis or clubbing. SKIN: Decubitus ulcer is present and colostomy present. NEUROLOGIC: SIX SIGMA BLACK BELT ENGINEER, the patient is nonverbal at this time. DIAGNOSTIC STUDIES LABORATORY: On admission, troponin is less than 0.05, lactic acid 1.3, ammonia 30, sodium 139, potassium 4.5, chloride 108, BUN 26, creatinine 1.0, AST 105, ALT 57, alkaline phosphatase 140, white blood cell count 11.2, hemoglobin 6.9, hematocrit 22.5, platelet count 234. ASSESSMENT The patient is being admitted to the telemetry unit with the diagnoses of 1. Acute hypoxic respiratory failure. 2. Pneumonia. 3. Severe anemia. 4. Elevated liver enzymes. 5. Possible urinary tract infection. 6. Decubitus ulcer, status post diverting colostomy. PLAN Admit to the telemetry unit. IV antibiotics have been started. Dr. Flores has been consulted. Oxygen to keep saturations above 94%. Mini-Neb treatment is being started. Speech will evaluate the patient. Solu-Medrol 40 mg q.12 h. is being started. IV fluids (1)____% at 75 cc an hour. Hemoccult in stool will be done. Dr. Stephane Parkinson is being consulted. EGD will be done. Please refer to progress note for further Unit #: [id number] #: [id number] Patient: TARAH MOORE. Dictated by Mayda Hartmann TD: 07/30/2016 14:31 JOB #: [id number] HISTORY AND PHYSICAL Page 1 of 1 X Eugenia Mercedes MD X HISTORY AND PHYSICAL
--- NOTE | ~2016-07-27 | CR72 ---
[facility] A Service of [facility] & [facility] RADIOLOGY TEXT RESULTS PATIENT: TARAH MOORE LOCATION: [address] : [birth year] UNIT #: [id number] AGE: [address]: Eugenia Mercedes MD SEX: M ORDER DR: [id number] [facility] [address] [facility]. [place], [place] [address] [id number] I MR#: [id number] Acc #: [id number] NAME: TARAH MOORE : 1925 SEX: M STUDY DATE/TIME: 07/31/2016 0:45 UNIT: [facility] ROOM: [facility] STUDY DESCRIPTION: CR Chest Single View Portable Attending Physician: Eugenia Mercedes M.D. Ordering Physician: Eguenia Mercedes M.D. Primary Care Physician: Bear Figueroa M.D. MEDICAL IMAGING REPORT This report is preliminary unless electronic signature is present EXAM Portable chest INDICATION Endotracheal tube placement. FINDINGS A portable view of the chest is compared with 1 from yesterday. An endotracheal tube has been added and the tip is 2 cm above the bassam. Bilateral interstitial prominence suggesting fibrosis is stable. Dictated by... Damien Garcia M.D. THIS IS AN ELECTRONICALLY VERIFIED REPORT Damien Garcia M.D. at 07/31/2016 1:31 PM HERO/zach TD: 07/31/2016 08:55 JOB #: [id number] MEDICAL IMAGING REPORT Page 1 of 1 COPY
--- NOTE | ~2016-07-27 | EKG ---
PATIENT: TARAH MOORE UNIT #: [id number] Ventricular Rate: 77 BPM Atrial Rate: 77 BPM P-R Interval: 190 ms QRS Duration: 82 ms Q-T Interval: 356 ms QTC Calculation(Bezet): 402 ms P [place]: 27 degrees Calculated R [place]: 14 degrees Calculated T [place]: -12 degrees Diagnosis Line: Normal sinus rhythm Diagnosis Line: Normal ECG Diagnosis Line: When compared with ECG of 22-JUL-2016 10:38, Diagnosis Line: No significant change was found Diagnosis Line: Confirmed by MARIELENA HDZ MD ([id number]) on Diagnosis Line: 07/27/2016 10:17:40 PM INTERPRETING : CHARLY
--- NOTE | ~2016-07-27 | CO ---
Unit #: [id number] #: [id number] Patient: TARAH MOORE [id number] [address] [place], [place] [address] [id number] I MR#: [id number] NAME: TARAH MOORE ROOM: [facility] Age: 89 Sex: M Admission Date: 07/27/2016 : 1925 Attending Physician: Eugenia Mercedes M.D. Primary Care Physician: Bear Figueroa M.D. Consultation Date: 08/01/2016 CONSULTATION REPORT REASON FOR CONSULTATION Acute kidney injury and oliguria. HISTORY OF PRESENT ILLNESS This 89-year-old male with multiple medical problems, including admission on 07/27/2016 for presumed sepsis syndrome. He is status post an excisional debridement of a stage IV sacral decubitus with coccygectomy and diverting sigmoid colostomy on 07/22/2016. He was discharged to the skilled nursing. At the date of admission on 07/27/2016, he was hypoxic and had pneumonia and was given antibiotics. His creatinine on admission was around 1. Multiple cultures have shown Corynebacterium. His creatinine today worsened to 1.7 and his urine output went down to below 200 mL for the past [address] Zavala also discovered that his right atrium and ventricle are very enlarged and the etiology of that is unclear. PAST MEDICAL HISTORY 1. As above in HPI. 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 2. Remote history of prostate cancer. PAST SURGICAL HISTORY 1. Hip surgery. 2. Partial lobectomy on the right. 3. History of diverting colostomy. 4. Excision of a decubitus ulcer on 07/22/2016. SOCIAL HISTORY The patient has multiple children who are all supportive. His son is POA. He recently lost his namesake son in May. MEDICATIONS Current medicines include Lipitor, Plavix, aspirin, furosemide, vancomycin, Protonix, Lovenox, Sublimaze, Solu-Medrol, Niferex, MiraLAX, Proscar, amiodarone, allopurinol, Flomax, aspirin, Zosyn, Cardizem, Os-Xavier, albuterol, Lortab, and Zofran. REVIEW OF SYSTEMS Unobtainable. PHYSICAL EXAMINATION VITAL SIGNS: His current blood pressure is 110/58 and is ranging to 97/61, heart rate is 83, temperature is 98, intake is 3.2 L in and urine output is 263. Unit #: [id number] #: [id number] Patient: TARAH MOORE GENERA: This is a frail-appearing male who weighs 56 kg. He is intubated on the ventilator. His FiO2 is 90%. HEENT: Eyes without drainage. NECK: Without JVD. CHEST: Diminished air entry bilaterally. ABDOMEN: Soft and nontender. There is a colostomy bag. EXTREMITIES: He does have 1+ thigh edema. No cyanosis or clubbing. DIAGNOSTIC STUDIES LABORATORY RESULTS: Shows sodium 143, potassium 3.5, bicarbonate 19, BUN 30, and creatinine 1.7. Hemoglobin is 8.1, platelet count 177, and white count is 13.9. ABG shows a pH of 7.29, pCO2 of 36, pO2 of 86, bicarbonate of 17, and he is on 90%. ASSESSMENT AND PLAN 1. Acute kidney injury. The etiology is unclear. It may be multifactorial related to an acute event involving his right heart. It could be related to sepsis syndrome. He is acidotic. He also is hypoxic from pneumonia. I have discussed extensively this patient's case with Dr. Mercedes and Dr. Zavala. We will try a bicarb drip and small amounts of diuretic to see if he will become oliguric. I fear that if this does not work, then his condition will be terminal. I think because of his advanced age and repeat physiologic stresses that he has undergone over the past few weeks. I did not think he has the stamina to undergo CRRT and have any meaningful recovery. 2. Pneumonia, on vancomycin. He was initially given tobramycin. 3. Recent excision of large decubitus and coccygectomy with diverting colostomy on 07/22/2016. 4. Advanced age. 5. Poor physiologic reserve. 6. Respiratory failure with a very high oxygen requirements. All the above was discussed with the above consultants, the patient's nurse, and with his daughter. The patient has been made DNR and the daughter knows that if the temporizing measures that I ordered tonight did not show improvement in his renal function, they will have to consider on goals of care. Thank you very much for allowing me to see Mr. Moore in consultation. We will follow this patient closely. Dictated by... Mayda Moreira/damir TD: 08/02/2016 12:56 JOB #: [id number] Unit #: [id number] #: [id number] Patient: TARAH MOORE CONSULTATION REPORT Page 1 of 1 X Yumiko Galindo MD X CONSULTATION REPORT
--- NOTE | ~2016-07-27 | CR72 ---
[facility] A Service of [facility] & [facility] RADIOLOGY TEXT RESULTS PATIENT: TARAH MOORE LOCATION: [address] : [birth year] UNIT #: [id number] AGE: [address]: Eugenia Mercedes MD SEX: M ORDER DR: [id number] [facility] [address] [facility]. [place], [place] [address] [id number] I MR#: [id number] Acc #: [id number] NAME: TARAH MOORE : 1925 SEX: M STUDY DATE/TIME: 08/01/2016 8:20 UNIT: [facility] ROOM: [facility] STUDY DESCRIPTION: CR Chest Single View Portable Attending Physician: Eugenia Mercedes M.D. Ordering Physician: Eugenia Mercedes M.D. Primary Care Physician: Bear Figueroa M.D. MEDICAL IMAGING REPORT This report is preliminary unless electronic signature is present EXAM Portable chest radiograph INDICATION Readjustment of this patient's endotracheal tube today. This catheter has been retracted 2 cm. FINDINGS Endotracheal tube has been retracted. It terminates just above the level of the bassam. I would suggest retracting it probably another cm. Cardiomegaly is identified. There are extensive alveolar and interstitial infiltrates not significantly changed when compared to the earlier examination. Trace bilateral pleural effusions are suspected. No pneumothorax is seen. Patient does have a right internal jugular vein central venous line which extends probably into the right atrium. Dictated by... Evon De Souza M.D. THIS IS AN ELECTRONICALLY VERIFIED REPORT Evon De Souza M.D. at 08/02/2016 4:52 PM SHRUTI/zach TD: 08/01/2016 14:17 JOB #: [id number] MEDICAL IMAGING REPORT Page 1 of 1 COPY
--- NOTE | ~2016-07-27 | CR72 ---
[facility] A Service of [facility] & [facility] RADIOLOGY TEXT RESULTS PATIENT: TARAH MOORE LOCATION: A 325-01 : [birth year] UNIT #: [id number] AGE: [address]: Eugenia Mercedes MD SEX: M ORDER DR: [id number] [facility] [address] [facility]. [place], [place] [address] [id number] I MR#: [id number] Acc #: [id number] NAME: TARAH MOORE : 1925 SEX: M STUDY DATE/TIME: 07/27/2016 01:33 UNIT: [facility] ROOM: [id number] STUDY DESCRIPTION: CR Chest Single View Portable Attending Physician: Eugenia Mercedes M.D. Ordering Physician: Niranjan Manzano M.D. Primary Care Physician: Bear Figueroa M.D. MEDICAL IMAGING REPORT This report is preliminary unless electronic signature is present EXAM Chest portable, 07/27/16, 0133 hours. CLINICAL HISTORY Shortness of air and weakness today, irregular heart rate today. Hypertension and prior history of prostate cancer. COMPARISON 07/14/12 FINDINGS Two portable upright views of the chest are performed. The heart size is mildly prominent but unchanged. There is a tortuous atherosclerotic aorta. There is underlying emphysematous change. There is diffuse parenchymal density right upper lung, right lung base greater than left perihilar region. These findings are new from 07/14/12, and could represent multifocal pneumonia or asymmetric edema. IMPRESSION Underlying emphysematous change with new mixed interstitial and airspace change in the right upper lobe, right lung base and left perihilar region. Findings could represent asymmetric edema or multifocal pneumonia. No definite left effusion is seen. One-view questions blunting of the right costophrenic sulcus which could indicate a small right effusion. Consider follow up upright two-view chest film when possible. Dictated by... Liz Baires M.D. THIS IS AN ELECTRONICALLY VERIFIED REPORT Liz Baires M.D. at 07/28/2016 9:31 AM RANDY/duane STS. [facility] A Service of [facility] & [facility] RADIOLOGY TEXT RESULTS PATIENT: TARAH MOORE LOCATION: A 325-01 : [birth year] UNIT #: [id number] AGE: [address]: Eugenia Mercedes MD SEX: M ORDER DR: TD: 07/27/2016 16:52 JOB #: [id number] MEDICAL IMAGING REPORT Page 1 of 1 COPY
--- NOTE | ~2016-07-27 | CR7 ---
[facility] A Service of [facility] & [facility] RADIOLOGY TEXT RESULTS PATIENT: TARAH MOORE LOCATION: [address] : [birth year] UNIT #: [id number] AGE: [address]: Eugenia Mercedes MD SEX: M ORDER DR: [id number] [facility] [address] [facility]. [place], [place] [address] [id number] I MR#: [id number] Acc #: [id number] NAME: TARAH MOORE : 1925 SEX: M STUDY DATE/TIME: 08/03/2016 5:07 UNIT: [facility] ROOM: [facility] STUDY DESCRIPTION: CR Abdomen Single AP View Attending Physician: Eugenia Mercedes M.D. Ordering Physician: Brad Gracia M.D. Primary Care Physician: Bear Figueroa M.D. MEDICAL IMAGING REPORT This report is preliminary unless electronic signature is present EXAM Portable abdomen HISTORY High feed residuals. Abdomen pain. Symptoms since diverting colostomy seven days ago. FINDINGS This supine view of the abdomen shows the nasogastric tube is coiled in the stomach. The bowel gas pattern is normal. There is no evidence of obstruction. A right hip prosthesis is present. Dictated by... Damien Garcia M.D. THIS IS AN ELECTRONICALLY VERIFIED REPORT Damien Garcia M.D. at 08/03/2016 1:22 PM HERO/cedric TD: 08/03/2016 10:38 JOB #: [id number] MEDICAL IMAGING REPORT Page 1 of 1 COPY
--- NOTE | ~2016-07-27 | A ---
[facility] Nutrition Therapy DATE: 07/31/16 Patient: TARAH MOORE Physician: JOANNE Address: [address] [place] [address] Room/Bed: [address], Zip: [place] [address] Admit Date: 07/27/16 Date of : [birth year] Height: 5 0 Weight: 125 56.8 NUTRITIONAL ASSESSMENT: REASON: NPO IN ICU, C/S FOR EN RECS PATEINT ADMITTED FOR DECREASED MENTAL STATUS, UNRESPONSIVENESS, PNA, POSSIBLE UTI PMH: HTN, HLD, COPD, PROSTATE CA, HX TOBACCO AND ETOH ABUSE Anthropometrics: HT: 60", WT: 116#, BMI: 22.6 Labs: 07/31/16- GLU: 119, BUN: 27, CA: 7.4, ALB: 2.0, AST: 215, ALT: 129 Meds: NACL, VIT D, ZOSYN, OS-SHELLY, 5% DEXTROSE, FENTANYL I/O & Bowel function: 910/839 Skin Integrity: STAGE 4 SACRAL PRESSURE ULCER Estimated Nutrition Needs: KCAL: [phone] (30-35 KCAL/KG) PROTEIN: 63-79GM (1.2-1.5 GM/KG) FLUIDS: 1ML/KCAL OR PER MD ORDERS Assessment: PATIENT IS AN 89 Y/O MALE ADMITTED FOR DECREASED MENTAL STATUS, UNRESPONSIVENESS, PNA, ACUTE HYPOXIC RESPIRATORY FAILURE, AND POSSIBLE UTI. PATIENT HAD A RECENT D/C FROM HOSPITAL ON 07/22/16 WHERE HE UNDERWENT DEBRIDEMENT OF A STAGE 4 PRESSURE ULCER AND DIVERTING SIGMOID COLOSTOMY. PATIENT IS CURRENTLY A RESIDENT AT A NURSING FACILITY. WEIGHT HX IS UNKNOWN AND THERE WAS NO FAMILY AT BEDSIDE, HOWEVER RECENT WEIGHT LOSS IS SUSPECTED. THERE ARE NO GI ISSUES NOTED ATT. PATIENT HAS HAD A DH TUBE PLACED AND HE IS CURRENTLY ON A VENT. PLEASE SEE ENTERAL NUTRITION RECOMMENDATIONS BELOW. Dx: INADEQUATE NUTRIENT INTAKE R/T CURRENT CONDITION AEB NPO, NEED FOR ENTERAL NUTRITION Intervention: NPO DIET, MEDS/FLUIDS PER MD, EN Monitoring, Evaluation and Goals: 1. PREVENT, CORRECT MICRO/MACRO NUTRIENT DEFICIENCIES 2. INITIATE ENTERAL NUTRITION 3. PROVIDE 100% ESTIMATED NUTRIENT NEEDS MONITOR: WEIGHTS, LABS, ELECTROLYTES, I/Os [facility] Nutrition Therapy DATE: 07/31/16 Patient: TARAH MOORE Physician: JOANNE Address: [address] [place] [address] Room/Bed: [address], Zip: [place] [address] Admit Date: 07/27/16 Date of : [birth year] Height: 5 0 Weight: 125 56.8 Recommendations: 1. ONCE MEDICALLY FEASIBLE BEGIN ALTERNATIVE NUTRITION SUPPORT OF JEVITY 1.5 @ 20ML/HR ADVANCE 10ML Q 6 HOURS TO GOAL RATE OF 50ML/HR -PROVIDES: 1800KCALS / 76.5GM PROTEIN / 912ML FLUID -ADD FREE WATER FLUSHES OF 220ML Q 6 HOURS OR PER MD ORDERS RD TO F/U PER PROTOCOL AND PRN R/T PATIENT MOD/SEVERELY COMPROMISED Respectfully, FILEMON GREEN, CHAVA, LD [facility] cc: client file
--- NOTE | ~2016-07-27 | CR72 ---
[facility] A Service of [facility] & [facility] RADIOLOGY TEXT RESULTS PATIENT: TARAH MOORE LOCATION: [address] : [birth year] UNIT #: [id number] AGE: [address]: Eugenia Mercedes MD SEX: M ORDER DR: [id number] [facility] [address] [facility]. [place], [place] [address] [id number] I MR#: [id number] Acc #: [id number] NAME: TARAH MOORE : 1925 SEX: M STUDY DATE/TIME: 08/01/2016 4:21 UNIT: [facility] ROOM: [facility] STUDY DESCRIPTION: CR Chest Single View Portable Attending Physician: Eugenia Mercedes M.D. Ordering Physician: Cayetano Shahid M.D. Primary Care Physician: Bear Figueroa M.D. MEDICAL IMAGING REPORT This report is preliminary unless electronic signature is present EXAM Portable chest INDICATION Follow up endotracheal tube placement and infiltrates. FINDINGS This portable view of the chest shows that the central catheter has its tip in the right atrium. The endotracheal tube has its tip near the bassam and should be pulled back about 3 cm. Bilateral diffuse infiltrates and fibrosis are stable. STAT * RESULT Dictated by... Damien Garcia M.D. THIS IS AN ELECTRONICALLY VERIFIED REPORT Damien Garcia M.D. at 08/01/2016 1:52 PM HERO/jus TD: 08/01/2016 05:34 JOB #: [id number] MEDICAL IMAGING REPORT Page 1 of 1 COPY
--- NOTE | ~2016-07-27 | FU ---
[facility] Nutrition Therapy DATE: 08/03/16 Patient: TARAH MOORE Physician: JOANNE Address: [address] [place] [address] Room/Bed: [address], Zip: [place] [address] Admit Date: 07/27/16 Date of : [birth year] Height: 5 0 Weight: 134 61.1 NUTRITION MONITORING/FOLLOW-UP: Reason: ENTERAL NUTRITION FOLLOW-UP DX: 89 Y.O. MALE ADMITTED FOR UNRESPONSIVENESS, DECREASED MENTAL STATUS, GI BLEED Anthropometrics: 5'0", 134# (61 KG), BMI 26 -ADMIT WEIGHT 116# Labs: GLU 139, BUN 37, CREAT 2.5, CA++ 5.8, ALB 1.4, AST 126, ALT 87 Meds: NACL, DEXTROSE 5%, ATORVASTIN CA, ZOSYN, VERSED I&O's: 4785/185. LAST BM 08/01 Skin: DECUBITUS HEEL, STAGE 4 SACRAL PRESSURE ULCER Estimated Nutrition Needs: [phone] KCAL 63-79 G PRO FLUID NEEDS CONSISTENT WITH KCALS Assessment: CHART REVIWED, EVENTS NOTED. PT CONTINUES TO BE INTUBATED AND SEDATED. PT WAS PREVIOUSLY RECEIVING JEVITY 1.5 @ 50 ML/HR X [address] TIME OF [address] VISIT, RN REPORTED THAT THE ENTERAL NUTRITION SUPPORT HAS BEEN TURNED OFF DUE TO INTOLERANCE, WITH THE PT HAVING HIGH RESIDUALS AND A POSSIBLE GI OBSTRUCTION. THE PT IS NOW NPO. PER CHART, ?COMFORT CARE. PLEASE SEE RECOMMENDATIONS. RD WILL REMAIN AVAILABLE. Dx: INADEQUATE NUTRIENT INTAKE R/T CURRENT CONDITION AEB NPO, NEED FOR ENTERAL NUTRITION -ACTIVE NEW DX: INADEQUATE NUTRIENT INTAKE R/T CURRENT CONDITION AEB NPO, INTOLERANCE OF ENTERAL NUTRITION. Intervention: 1. NPO 2. ENTERAL NUTRITION Monitoring, Evaluation and Goals: 1. PREVENT, CORRECT MICRO/MACRO NUTRIENT DEFICIENCES -NOT MET 2. INITIATE ENTERAL NUTRITION -ACTIVE/IN-PROGRESS 3. PROVIDE 100% ESTIMATED NUTRIENT NEEDS -NOT MET NEW GOALS: [facility] Nutrition Therapy DATE: 08/03/16 Patient: TARAH MOORE Physician: JOANNE Address: [address] [place] [address] Room/Bed: [address], Zip: [place] [address] Admit Date: 07/27/16 Date of : [birth year] Height: 5 0 Weight: 134 61.1 1. GI; PROMOTE REGULAR GI FUNCTION 2. WEIGHT; PROMOTE WEIGHT MAINTENANCE, PREVENT WEIGHT LOSS Recommendations: 1. ONCE MEDICALLY FEASIBLE, RE-INITIATE ENTERAL NUTRITION SUPPORT WITH JEVITY 1.5 @ 20 ML/HR AND ADVANCE 10 ML q 10 HOURS TO GOAL RATE OF 50 ML/HR -PROVIDES: 1800 KCALS, 76.5 G PRO, 912 ML H20 -ADD FREE H20 FLUSHES OF 220 ML q 6 HOURS OR PER MD ORDERS 2. ADMINISTER REGLAN TO STIMULATE GI MOTILITY 3. IF PT CONTINUES TO HAVE INTOLERANCE OF JEVITY 1.5, INITIATE AN ELEMENTAL PEPTIDE-BASED FORMULA FOR PTS EXPERIENCING GI INTOLERANCE. BEGIN ENTERAL NUTRITION SUPPORT OF VITAL 1.5 @ 20 ML/HR AND ADVANCE 10 ML q 8 HOURS TO GOAL RATE OF 45 ML/HR X 24 HOURS. -THIS WILL PROVIDE 1620 KCALS, 73 G PRO, 1080 ML H20 -FREE H20 FLUSHES PER MD 4. IF ENTERAL NUTRITION CONTINUES TO NOT BE TOLERATED, CONSULT RD FOR TPN. 5. ONCE PT EXTUBATED, ADVANCE DIET PER ADVANCE SCOUT + HEALTHY HEART DIET. RD WILL F/U PER PROTOCOL PT IS AT SEVERE NUTRITIONAL RISK. Respectfully, BRISEYDA LACY, TECHNICAL OPERATIONS MANAGER MIKE GRANT MS, RD, LD Food and Nutritional Services [facility] cc: client file
--- NOTE | ~2016-07-27 | EKG ---
PATIENT: TARAH MOORE UNIT #: [id number] Ventricular Rate: 85 BPM Atrial Rate: 82 BPM P-R Interval: 206 ms QRS Duration: 82 ms Q-T Interval: 356 ms QTC Calculation(Bezet): 423 ms P Surveyor: -82 degrees Calculated R Surveyor: -7 degrees Calculated T Surveyor: -41 degrees Diagnosis Line: Atrial fibrillation Diagnosis Line: Low voltage QRS Diagnosis Line: Cannot rule out Anteroseptal infarct , age Diagnosis Line: undetermined Diagnosis Line: ST and T wave abnormality, consider lateral ischemia Diagnosis Line: Abnormal ECG Diagnosis Line: When compared with ECG of 27-JUL-2016 10:57, Diagnosis Line: Atrial fibrillation has replaced Sinus rhythm Diagnosis Line: Minimal criteria for Anteroseptal infarct are now Diagnosis Line: Present Diagnosis Line: ST now depressed in Anterior leads Diagnosis Line: T wave inversion now evident in Anterolateral Diagnosis Line: leads Diagnosis Line: Confirmed by CLARA DWYER MD ([id number]) on 08/01/2016 Diagnosis Line: 4:35:05 PM INTERPRETING MD: YULIYA METCALF
--- NOTE | ~2016-07-27 | CR72 ---
[facility] A Service of [facility] RADIOLOGY TEXT RESULTS PATIENT: TARAH MOORE LOCATION: [facility]01 : [birth year] UNIT #: [id number] AGE: [address]: Eugenia Mercedes MD SEX: M ORDER DR: [id number] [facility] [address] [facility]. [place], [place] [address] [id number] I MR#: [id number] Acc #: [id number] NAME: TARAH MOORE : 1925 SEX: M STUDY DATE/TIME: 07/30/2016 11:59 UNIT: [facility]U ROOM: 325 STUDY DESCRIPTION: CR Chest Single View Portable Attending Physician: Eugenia Mercedes M.D. Ordering Physician: Cayetano Olivera M.D. Primary Care Physician: Bear Figueroa M.D. MEDICAL IMAGING REPORT This report is preliminary unless electronic signature is present EXAM AP radiograph chest pain. HISTORY Pain. Pneumonia, cough, congestion, weakness 3 days duration. Prior history of prostate cancer. FINDINGS AP radiograph of the chest is presented COMPARISON STUDIES 07/27/2016. FINDINGS Continued cardiac enlargement. The lung volumes improved. There is probably underlying emphysema. Continued airspace disease in the right upper lobe probably stable to slightly improved. Given differences in obliquity, There is increased right lower lobe airspace disease and the right heart border is somewhat ill-defined suggesting right middle lobe disease. Improved densities in the left retrocardiac region. Findings suggest multifocal bilateral pneumonia, worsening in the right lower lobe and improved in the right upper and left lower lobes. Small bilateral pleural effusions. No pneumothorax. The visualized upper abdomen is unremarkable. Extensive atherosclerotic arterial calcifications. Dictated by... Rodrigo Laguerre M.D. THIS IS AN ELECTRONICALLY VERIFIED REPORT Rodrigo Laguerre M.D. at 08/02/2016 8:13 AM ABIODUN/semaj [facility] A Service of [facility] RADIOLOGY TEXT RESULTS PATIENT: TARAH MOORE LOCATION: [facility] GOMEZCU04-01 : [birth year] UNIT #: [id number] AGE: [address]: Eugenia Mercedes MD SEX: M ORDER DR: TD: 07/30/2016 14:29 JOB #: [id number] MEDICAL IMAGING REPORT Page 1 of 1 COPY
--- NOTE | ~2016-07-27 | CO ---
Unit #: [id number] #: [id number] Patient: TARAH MOORE [id number] [address] [address] [id number] I MR#: [id number] NAME: TARAH MOORE ROOM: 325 Age: 89 Sex: M Admission Date: 07/27/2016 : 1925 Attending Physician: Eugenia Mercedes M.D. Primary Care Physician: Bear Figueroa M.D. Consultation Date: 07/27/2016 CONSULTATION REPORT PRIMARY CARE PHYSICIAN Bear Figueroa M.D. REASON FOR CONSULTATION Severe anemia. HISTORY OF PRESENT ILLNESS Mr. Moore is an 89-year-old gentleman. The history was provided by his son, who was at bedside. The patient unfortunately is unable to provide any significant history. He was found to have severe anemia and found to have a hemoglobin of 6.9. There is no history of overt GI bleed in the form of hematemesis, melena, or hematochezia. The patient had been seen by Dr. Kraft and is being treated with antibiotics for pneumonia including Zosyn, tobramycin, and vancomycin. In addition, there was an order for a speech and swallow evaluation tomorrow. There is no history of any abdominal pain nor any history of overt GI bleed. He does have mildly elevated liver enzymes. PAST MEDICAL HISTORY Significant for hypertension; hyperlipidemia; prostate cancer, status post radiation treatment; gastroesophageal reflux; and history of osteoarthrosis. PAST SURGICAL HISTORY Unknown. MEDICATIONS Prior to admission included aspirin, Protonix, Flomax, Zyloprim, Cardizem, amiodarone, Proscar, Acidophilus, lovastatin, MiraLAX, Desyrel, acetaminophen, Zoloft, Eliquis, Gravette, vitamin D3, Niferex, Zofran, calcium, Remeron. ALLERGIES He has no known drug allergies. SOCIAL HISTORY He has a remote history of tobacco use. FAMILY HISTORY Hypertension and cerebral hemorrhage in the father. REVIEW OF SYSTEMS Detailed review of organ systems is impossible to ascertain from the patient or son. Unit #: [id number] #: [id number] Patient: TARAH MOORE PHYSICAL EXAMINATION GENERAL: He is awake and alert, and denies any pain. VITAL SIGNS: Stable with a temperature of , pulse is 78 per minute and regular, respiratory rate 20, blood pressure 106/60. He is quite emaciated and weighs 115 pounds. He used to weigh as much as 140 to 180 pounds until 3 to 4 years ago. HEENT: He has iwyqotjs-cp-xcsckh pallor. There being no icterus, lymphadenopathy, or peripheral edema. CARDIOVASCULAR: Normal heart sounds. No murmurs. LUNGS: Auscultation over the lungs reveals bilateral diminished symmetric air entry. ABDOMEN: Soft and nontender. Liver and spleen are not palpable. Bowel sounds normal. DIAGNOSTIC STUDIES LABORATORY RESULTS: Shows a hemoglobin of 6.9 with MCV of 82.6, white count 7000 with left shift, platelet count is 234. I do not have his iron, B12, or folate studies. Serum chemistry shows a BUN of 26, creatinine 1.0, albumin is 2.1. AST, ALT, and alkaline phosphatase are 105, 57, and 114 respectively. Amylase and lipase are normal. IMAGING STUDIES: The patient had a CT of the chest that shows interstitial emphysematous changes and also these are difficult to interpret and differentiate for multifocal pneumonia. CLINICAL IMPRESSION The patient had significant anemia, probably of mixed etiology or anemia of chronic disease infection and also possible gastrointestinal blood loss. An upper GI endoscopy is warranted will be scheduled for tomorrow. In addition, an ultrasound of the right upper quadrant also be done. The above plan discussed with patient's son, who was at the bedside and he was reassured. Thank you for asking me to see this pleasant gentleman. I appreciate the consult. Dictated by... Mayda Hay/damir TD: 07/28/2016 02:18 JOB #: [id number] CONSULTATION REPORT Page 1 of 1 X Stephane Parkinson MD CONSULTATION REPORT
--- NOTE | ~2016-07-27 | CR72 ---
[facility] A Service of [facility] RADIOLOGY TEXT RESULTS PATIENT: TARAH MOORE LOCATION: [facility] : [birth year] UNIT #: [id number] AGE: [address]: Eugenia Mercedes MD SEX: M ORDER DR: [id number] [facility]. [place], [place] [address] [id number] I MR#: [id number] Acc #: [id number] NAME: TARAH MOORE : 1925 SEX: M STUDY DATE/TIME: 08/02/2016 6:26 UNIT: [facility] ROOM: [facility] STUDY DESCRIPTION: CR Chest Single View Portable Attending Physician: Eugenia Mercedes M.D. Ordering Physician: Miky Washington M.D. Primary Care Physician: [place] Figueroa M.D. MEDICAL IMAGING REPORT This report is preliminary unless electronic signature is present EXAM Portable chest HISTORY Respiratory failure. Patient on ventilator. Pneumonia. History of diverting colostomy and large decubitus ulcer July 2016. COMPARISON: 08/01/2016 FINDINGS Tubes and lines remain in satisfactory position unchanged. Improved lung volumes. Continued small right-sided pneumothorax with probable air along the minor fissure and within the right lung base but no sizeable right-sided pneumothorax. Continued diffuse bilateral interstitial and alveolar infiltrates may represent pulmonary edema or diffuse pneumonia. Some areas of consolidation near the periphery of the right lung. Probable small right effusion. Stable cardiomegaly and aortic atherosclerotic changes. Changes in both shoulders may reflect degenerative arthritis or chronic rotator cuff tears. Dictated by... Alex Iglesias M.D. THIS IS AN ELECTRONICALLY VERIFIED REPORT Alex Iglesias M.D. at 08/02/2016 3:55 PM OZIEL/fabrice TD: 08/02/2016 10:21 JOB #: [id number] MEDICAL IMAGING REPORT [facility] A Service of [facility] RADIOLOGY TEXT RESULTS PATIENT: TARAH MOORE LOCATION: [address] : [birth year] UNIT #: [id number] AGE: [address]: Eugenia Mercedes MD SEX: M ORDER DR: Page 1 of 1 COPY
--- NOTE | ~2016-07-27 | CO ---
Unit #: [id number] #: [id number] Patient: TARAH MOORE [id number] [facility]. [place], [place] [address] [id number] I MR#: [id number] NAME: TARAH MOORE ROOM: 325 Age: 89 Sex: M Admission Date: 07/27/2016 : 1925 Attending Physician: Eugenia Mercedes M.D. Primary Care Physician: [place] Figueroa M.D. Consultation Date: 07/27/2016 CONSULTATION REPORT REASON FOR CONSULTATION Respiratory failure. HISTORY OF PRESENT ILLNESS An 89-year-old gentleman presents from intermediate with evidence of pneumonia. His history is very poor. He says he "spits up." The family also states that they have seen mucopurulent sputum, but otherwise no other symptoms can be gathered. PAST MEDICAL HISTORY Extensive and is remarkable for recent cardiac evaluation at [facility], which was felt to be unremarkable. He has a history of hypertension, hyperlipidemia, COPD, and remote prostate cancer. MEDICATIONS Multiple and are listed on the chart and include aspirin, Protonix, Flomax, Zyloprim, Cardizem, amiodarone, Proscar, lovastatin, Desyrel, Mini-Neb, Remeron, Zoloft, Eliquis, and Bondurant. ALLERGIES No known medical allergies. SOCIAL HISTORY Lives at a intermediate. Does not smoke. He had remote smoking. FAMILY HISTORY Unobtainable. REVIEW OF SYSTEMS Unobtainable. PHYSICAL EXAMINATION GENERAL: Reveals a patient who is cachectic appearing, in no acute distress on oxygen. VITAL SIGNS: He is afebrile. Pulse 75, respiratory rate is 18, blood pressure 107/44, and he weighs 116 pounds. HEENT: Pupils equal, round, and reactive to light. Sclerae anicteric. Head atraumatic. NECK: Supple. No supraclavicular or cervical adenopathy appreciated. He is edentulous. CHEST: Limited exam. Rhonchi and some scattered wheezing. Poor cough. CARDIAC: Reveals regular rate and rhythm. No pathologic murmur, rub, or gallop. ABDOMEN: Soft and nontender. No hepatomegaly or rebound. Unit #: [id number] #: [id number] Patient: TARAH MOORE EXTREMITIES: Reveal no clubbing, cyanosis, or edema. No calf tenderness. He has heel protectors in place. NEUROLOGIC: He did not cooperate with full neurologic exam. SKIN: Warm and dry without rash. DIAGNOSTIC STUDIES IMAGING STUDIES: Chest x-ray, right-sided infiltrates. EKG, unremarkable. LABORATORY RESULTS: Arterial blood gas; pH is 7.48, pCO2 of 37, and PO2 of 49 on 2 L. His BUN 26 and creatinine 1.1. Lactate unremarkable. Mild elevation in transaminases. White blood cell count 11.2, hemoglobin 6.9, and platelet count 234. Urinalysis consistent with urinary tract infection. IMPRESSION 1. Pneumonia. 2. Respiratory failure. 3. Urinary tract infection. 4. Anemia. 5. Suspect aspiration. 6. Severe decubitus status post diverting colostomy. 7. Elderly age with multiple medical problems. PLAN Broad-spectrum antibiotics, which should cover pulmonary and urinary sources. Follow up cultures and adjust as necessary. Speech to see for swallow evaluation. Steroids for pneumonia and COPD as well as nebulized bronchodilators. Oxygen to maintain adequate saturations. Given his multiple medical problems and advanced age and limited functional capacity, consider DNR status. Thank you very much for allowing me to participate in the care of Mr. Moore. Dictated by... Kashmir Flores M.D. TRUNG/damir TD: 07/28/2016 14:16 JOB #: [id number] CONSULTATION REPORT Page 1 of 1 X Kashmir Flores MD X CONSULTATION REPORT
--- NOTE | ~2016-07-27 | US6 ---
[facility] A Service of [facility] RADIOLOGY TEXT RESULTS PATIENT: TARAH MOORE LOCATION: [facility] 325-01 : [birth year] UNIT #: [id number] AGE: [address]: Eugenia Mercedes MD SEX: M ORDER DR: [id number] [facility]. [place], [place] [address] [id number] I MR#: [id number] Acc #: [id number] NAME: TARAH MOORE : 1925 SEX: M STUDY DATE/TIME: 07/28/2016 8:59 UNIT: C3A PCU ROOM: 325 STUDY DESCRIPTION: US Abdominal Limited Attending Physician: Eugenia Mercedes M.D. Ordering Physician: Eugenia Mercedes M.D. Primary Care Physician: [place] Figueroa M.D. MEDICAL IMAGING REPORT This report is preliminary unless electronic signature is present EXAM Right upper quadrant ultrasound 07/28/2016 INDICATIONS 89-year-old male with hypertension, hyperlipidemia, alcohol abuse. Stage 4 sacral decubitus ulcer. Prostate cancer and radiation therapy history. Elevated liver enzymes. TECHNIQUE Sonographic imaging of the right upper quadrant was performed. No relevant comparisons. FINDINGS These were the best images according to the technologist given the patient's limited functional status. Images were reviewed with the technologist prior to dictation. The pancreas was obscured by bowel gas and not seen or evaluated. Pancreatic duct top normal in diameter. Visualized aspects of the pancreas grossly unremarkable. The liver has a somewhat coarsened echotexture but there is no focal liver mass. Trace amount of right-sided pleural fluid suspected. The liver measures approximately 11.6 cm long axis. The right kidney is nonobstructed, measuring 9.6 cm long axis. The gallbladder is distended. Filling defects within the gallbladder are most characteristic of sludge and perhaps tiny stones. No sonographic Martin sign was encountered by the technologist. No gallbladder wall thickening or pericholecystic fluid demonstrated. Extrahepatic common bile duct is borderline to mildly dilated at 1 cm for patient age. There is mild central intrahepatic ductal prominence measuring up to 7-8 mm. IMPRESSION 1. The gallbladder demonstrates sludge and perhaps small stones within the lumen. No additional distinct ultrasound evidence of acute STS. [facility] A Service of [facility] RADIOLOGY TEXT RESULTS PATIENT: TARAH MOORE LOCATION: [facility] 325-01 : [birth year] UNIT #: [id number] AGE: [address]: Eugenia Mercedes MD SEX: M ORDER DR: cholecystitis at this time. 2. Extrahepatic common bile duct measures about a cm which is borderline to mildly dilated for patient age. Mild central intrahepatic ductal prominence. 3. There is no focal liver mass. Probable trace to small right-sided pleural effusion. 4. Pancreas not well visualized or assessed. 5. Right kidney within normal limits. Dictated by... Brent Vieyra M.D. THIS IS AN ELECTRONICALLY VERIFIED REPORT Brent Vieyra M.D. at 07/28/2016 5:06 PM GUSTAVO/jus TD: 07/28/2016 14:53 JOB #: [id number] MEDICAL IMAGING REPORT Page 1 of 1 COPY
--- NOTE | ~2016-07-27 | CR72 ---
[facility] A Service of [facility] RADIOLOGY TEXT RESULTS PATIENT: TARAH MOORE LOCATION: [address] : [birth year] UNIT #: [id number] AGE: [address]: Eugenia Mercedes MD SEX: M ORDER DR: [id number] [facility] [address] [facility]. [place], [place] [address] [id number] I MR#: [id number] Acc #: [id number] NAME: TARAH MOORE : 1925 SEX: M STUDY DATE/TIME: 08/04/2016 5:52 UNIT: [facility] ROOM: [facility] STUDY DESCRIPTION: CR Chest Single View Portable Attending Physician: Eugenia Mercedes M.D. Ordering Physician: Kashmir Flores M.D. Primary Care Physician: [place] Figueroa M.D. MEDICAL IMAGING REPORT This report is preliminary unless electronic signature is present EXAM Portable AP view of the chest COMPARISON August 03, 2016, August 02, 2016. INDICATION 89-year-old male with pneumonia and respiratory failure requiring ventilatory support as well as a right-sided chest tube for 8 days. Patient is post diverting colostomy. History of hypertension and COPD. FINDINGS/IMPRESSION Lung volumes are diminished from comparison study and the endotracheal tube appears advanced slightly, likely due to difference in lung volumes. Tube tip is approximately 2.4 cm above the bassam. Right thoracostomy tube is grossly stable. There may be a tiny right apical pneumothorax, likely clinically insignificant. Cardiomediastinal silhouette is grossly stable with calcification of the aortic arch. Band-like opacities in the periphery of the right lung base likely reflect atelectasis. There are interstitial opacities throughout the lungs which appear slightly increased from comparison likely reflecting atelectasis. Underlying pneumonia cannot be excluded. Also consider the possibility of underlying chronic lung disease. Right internal jugular catheter is again noted with the tip terminating likely in the right atrium, again possibly advanced due to low lung volumes. There is a somewhat nodular-appearing opacity along the left lateral chest wall which appears new from August 01, 2016 and likely is infectious. Dictated by... Teo Craven M.D. THIS IS AN ELECTRONICALLY VERIFIED REPORT Teo Craven M.D. at 08/10/2016 7:20 AM [facility] A Service of [facility] RADIOLOGY TEXT RESULTS PATIENT: TARAH MOORE LOCATION: [place] [address]- : [birth year] UNIT #: [id number] AGE: [address]: Eugenia Mercedes MD SEX: M ORDER DR: Jeromy TD: 08/04/2016 07:50 JOB #: [id number] MEDICAL IMAGING REPORT Page 1 of 1 COPY
--- NOTE | ~2016-07-27 | CT71 ---
[facility] A Service of [facility] RADIOLOGY TEXT RESULTS PATIENT: TARAH MOORE LOCATION: C3A : [birth year] UNIT #: [id number] AGE: [address]: Eugenia Mercedes MD SEX: M ORDER DR: [id number] [facility] [address] [facility]. [place], [place] [address] [id number] I MR#: [id number] Acc #: [id number] NAME: TARAH MOORE : 1925 SEX: M STUDY DATE/TIME: 07/27/2016 15:43 UNIT: [facility] ROOM: [address] [place] [address] DESCRIPTION: CT Head Wo Contrast Attending Physician: Eugenia Mercedes M.D. Ordering Physician: Niranjan Manzano M.D. Primary Care Physician: [place] Figueroa M.D. MEDICAL IMAGING REPORT This report is preliminary unless electronic signature is present EXAM CT brain without contrast, 07/27/2016 COMPARISON STUDY 07/15/2012 HISTORY Confusion beginning today. TECHNIQUE Axial imaging of the brain was performed without contrast media. This CT exam was performed with one or more of the following radiation dose reduction techniques: automatic exposure control, adjustment of mA and/or kV according to patient size, and iterative reconstruction. COMPARISON Compared directly to the most recent contrast-enhanced scan of 07/15/2012. FINDINGS There is generalized enlargement of the ventricles and CSF-containing spaces. 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 There are extensive deep white matter chronic ischemic changes present bilaterally. No mass lesions, mass effect, evidence of acute hemorrhage or edema. No intra or extraaxial fluid collections are seen. Note is made of advanced atherosclerotic calcifications of the carotid siphons and vertebral arteries. There is evidence of bilateral maxillary sinus disease, bilateral ethmoid sinus disease, sphenoid disease. The patient has no evidence of significant mastoid disease. No fractures are present. CONCLUSION 1. Generalized atrophy. [facility] A Service [facility] RADIOLOGY TEXT RESULTS PATIENT: TARAH MOORE LOCATION: C3A : [birth year] UNIT #: [id number] AGE: [address]: Eugenia Mercedes MD SEX: M ORDER DR: 2. Chronic ischemic changes in the periventricular region and in the posterior limb of the internal capsule on the left. 3. Extensive atherosclerotic calcifications in the carotid siphons and vertebrals. 4. Sinus disease involving the maxillary, ethmoid and sphenoid sinuses. Dictated by... Rodrigo Chamorro M.D. THIS IS AN ELECTRONICALLY VERIFIED REPORT Rodrigo Chamorro M.D. at 07/28/2016 5:11 PM Marielos TD: 07/27/2016 21:29 JOB #: [id number] MEDICAL IMAGING REPORT Page 1 of 1 COPY
[2016-07-27 11:20] LABS: ARTERIAL BLD GAS O2 SATURATION 87.7 % (90.0-100.0); ARTERIAL BLOOD GAS ALLEN TEST N; ARTERIAL BLOOD GAS ART SITE RIGHT BRACHIAL; ARTERIAL BLOOD GAS CARBOXY HB 1.1 %sat (0.0-9.0); ARTERIAL BLOOD GAS DELIVERY NASAL CANNULA; ARTERIAL BLOOD GAS HCO3 27.8 mmol/L; ARTERIAL BLOOD GAS MET HB 0.8 %sat (0.0-2.0); ARTERIAL BLOOD GAS PO2 49.6 mmHg (80.0-100); ARTERIAL DRAW? YES
[2016-07-27 11:32] LABS: URINE SOURCE CLEAN CATCH
[2016-07-27 11:50] LABS: POC - CKMB 3.2 ng/mL (0.0-7.9); POC - TROPONIN <0.05 ng/mL (<=0.05)
[2016-07-27 11:54] LABS: URINE APPEARANCE CLOUDY; URINE BILIRUBIN NEG (NEG); URINE BLOOD TRACE (NEG); URINE COLOR YELLOW; URINE GLUCOSE NEG (NEG); URINE KETONE NEG (NEG); URINE LEUKOCYTE ESTERASE 2+ (NEG); URINE NITRATE NEG (NEG); URINE PROTEIN TRACE (NEG); URINE SPECIFIC GRAVITY 1.022 (1.003-1.035)
[2016-07-27 11:57] LABS: CULTURE INDICATED? YES; URINE BACTERIA AUWI NEG (NEGATIVE); URINE SQUAMOUS EPITHELIAL CELL OCC /[HPF]
[2016-07-27 12:00] LABS: BASOPHIL# 0.1 X10e3 (0-0.3); BASOPHIL% 0.5 % (0-2.5); EOSINOPHIL% 0.3 % (0.0-7.0); HEMATOCRIT 22.5 % (38.0-50.0); LYMPHOCYTE# 0.3 X10e3 (1.0-3.5); MEAN CELL VOLUME 82.6 FL (83-96); MEAN CORPUSCULAR HEMOGLOBIN 25.3 PG (28-34); MEAN CORPUSCULAR HGB CONC 30.6 g/dL (30-36); MEAN PLATELET VOLUME 7.9 FL (6.5-11.5); MONOCYTE# 0.5 X10e3 (0-1.0); MONOCYTE% 4.6 % (3.0-12.0); NEUTROPHIL# 10.3 X10e3 (1.5-7.1); NEUTROPHIL% 91.6 % (40-75); PLATELET COUNT 234 X10e3 (140-420); RED BLOOD COUNT 2.72 X10e (3.90-5.60); RED CELL DISTRIBUTION WIDTH 22.9 % (11.0-15.5); WHITE BLOOD COUNT 11.2 X10e3 (4.0-10.5)
[2016-07-27 12:03] LABS: U HYALINE CASTS AUWI 0-2 /[LPF]
[2016-07-27 12:07] LABS: DIFF IND YES; HEMOGLOBIN 6.9 gm/dL (13.0-16.0)
[2016-07-27 12:07] LABS: URBCS1 AUWI 0-2 /[HPF] (0-2)
[2016-07-27 12:22] LABS: ALBUMIN SERUM 2.1 g/dL (3.5-5.0); BILIRUBIN, DIRECT 0.3 mg/dL (0.0-0.2); BILIRUBIN,INDIRECT 0.6 mg/dL (0.0-0.9); BILIRUBIN,TOTAL 0.9 mg/dL (0.2-2.0); CALCIUM SERUM 8.7 mg/dL (8.4-10.2); MAGNESIUM 2.2 mg/dL (1.6-3.0); PHOSPHOROUS 2.7 mg/dL (2.5-4.6); POTASSIUM 4.5 mmol/L (3.5-5.1); PROTEIN TOTAL SERUM 5.8 g/dL (6.0-8.3)
[2016-07-27 12:47] LABS: OVALOCYTES PRESENT; PLATELET ESTIMATE NORMAL (NORMAL); RBC NORMAL YES
[2016-07-27 12:49] LABS: SCHISTOCYTES PRESENT
[2016-07-27 12:50] LABS: ACANTHOCYTES PRESENT
[2016-07-27 12:51] LABS: ANISOCYTOSIS MOD; HYPOCHROMIA SL
[2016-07-27 12:52] LABS: MICROCYTOSIS MOD; TARGET CELLS SL
[2016-07-27 12:53] LABS: POIKILOCYTOSIS SL
[2016-07-27 12:56] LABS: INR 1.3; PROTHROMBIN TIME (PATIENT) 14.1 SECONDS (9.6-11.5)
[2016-07-27 15:31] LABS: POC - CKMB 4.1 ng/mL (0.0-7.9); POC - TROPONIN <0.05 ng/mL (<=0.05)
[2016-07-28 07:43] LABS: HEMATOCRIT 20.2 % (38.0-50.0); MEAN CELL VOLUME 82.1 FL (83-96); MEAN CORPUSCULAR HEMOGLOBIN 26.1 PG (28-34); MEAN CORPUSCULAR HGB CONC 31.7 g/dL (30-36); MEAN PLATELET VOLUME 8.1 FL (6.5-11.5); RED BLOOD COUNT 2.46 X10e (3.90-5.60); RED CELL DISTRIBUTION WIDTH 22.9 % (11.0-15.5); WHITE BLOOD COUNT 8.1 X10e3 (4.0-10.5)
[2016-07-28 08:04] LABS: HEMOGLOBIN 6.4 gm/dL (13.0-16.0)
[2016-07-28 08:39] LABS: FOLATE (FOLIC ACID) 17.3 ng/mL (>5.8)
[2016-07-28 11:46] LABS: ALBUMIN SERUM 1.6 g/dL (3.5-5.0); BILIRUBIN,TOTAL 0.9 mg/dL (0.2-2.0); BUN/CREATININE RATIO 24.44; CREATININE SERUM 0.9 mg/dL (0.6-1.4); GLOM FILT RATE Estimated 87.5 mL/min (>60); POTASSIUM 4.9 mmol/L (3.5-5.1); PROTEIN TOTAL SERUM 4.7 g/dL (6.0-8.3)
[2016-07-29 07:33] LABS: BASOPHIL# 0.1 X10e3 (0-0.3); BASOPHIL% 1.3 % (0-2.5); HEMATOCRIT 29.1 % (38.0-50.0); LYMPHOCYTE# 0.3 X10e3 (1.0-3.5); LYMPHOCYTE% 2.9 % (17.0-45.0); MEAN CELL VOLUME 83.3 FL (83-96); MEAN CORPUSCULAR HEMOGLOBIN 26.6 PG (28-34); MEAN CORPUSCULAR HGB CONC 31.9 g/dL (30-36); MEAN PLATELET VOLUME 7.7 FL (6.5-11.5); MONOCYTE# 0.5 X10e3 (0-1.0); MONOCYTE% 4.7 % (3.0-12.0); NEUTROPHIL# 9.5 X10e3 (1.5-7.1); NEUTROPHIL% 91.1 % (40-75); PLATELET COUNT 231 X10e3 (140-420); RED CELL DISTRIBUTION WIDTH 19.8 % (11.0-15.5); WHITE BLOOD COUNT 10.4 X10e3 (4.0-10.5)
[2016-07-29 07:35] LABS: DIFF IND NO; HEMOGLOBIN 9.3 gm/dL (13.0-16.0)
[2016-07-29 08:14] LABS: ALBUMIN SERUM 1.9 g/dL (3.5-5.0); BILIRUBIN,TOTAL 0.9 mg/dL (0.2-2.0); BUN/CREATININE RATIO 25.55; CALCIUM SERUM 7.2 mg/dL (8.4-10.2); CREATININE SERUM 0.9 mg/dL (0.6-1.4); GLOM FILT RATE Estimated 87.5 mL/min (>60); POTASSIUM 4.1 mmol/L (3.5-5.1); PROTEIN TOTAL SERUM 5.4 g/dL (6.0-8.3)
[2016-07-30 08:09] LABS: HEMATOCRIT 27.8 % (38.0-50.0); HEMOGLOBIN 8.9 gm/dL (13.0-16.0); MEAN CELL VOLUME 82.4 FL (83-96); MEAN CORPUSCULAR HEMOGLOBIN 26.4 PG (28-34); MEAN PLATELET VOLUME 7.9 FL (6.5-11.5); RED BLOOD COUNT 3.38 X10e (3.90-5.60); RED CELL DISTRIBUTION WIDTH 20.5 % (11.0-15.5)
[2016-07-30 09:04] LABS: BUN/CREATININE RATIO 24.44; CALCIUM SERUM 7.6 mg/dL (8.4-10.2); CREATININE SERUM 0.9 mg/dL (0.6-1.4); GLOM FILT RATE Estimated 87.5 mL/min (>60); POTASSIUM 3.5 mmol/L (3.5-5.1)
[2016-07-30 14:21] LABS: ARTERIAL BLD GAS O2 SATURATION 91.9 % (90.0-100.0); ARTERIAL BLOOD GAS CARBOXY HB 0.9 %sat (0.0-9.0); ARTERIAL BLOOD GAS HCO3 19.9 mmol/L; ARTERIAL BLOOD GAS MET HB 0.7 %sat (0.0-2.0); ARTERIAL BLOOD GAS PCO2 30.1 mmHg (35.0-45.0); ARTERIAL BLOOD GAS PO2 59.2 mmHg (80.0-100)
[2016-07-30 14:22] LABS: ARTERIAL BLOOD GAS ALLEN TEST NORMAL; ARTERIAL BLOOD GAS ART SITE RIGHT BRACHIAL; ARTERIAL BLOOD GAS DELIVERY OXIMIZER; ARTERIAL DRAW? YES
[2016-07-31 00:59] LABS: ARTERIAL BLOOD GAS CARBOXY HB 0.6 %sat (0.0-9.0); ARTERIAL BLOOD GAS HCO3 15.5 mmol/L; ARTERIAL BLOOD GAS PCO2 34.1 mmHg (35.0-45.0); ARTERIAL BLOOD GAS PO2 86.7 mmHg (80.0-100); ARTERIAL BLOOD GAS pH 7.267 (7.350-7.450)
[2016-07-31 01:00] LABS: ARTERIAL BLOOD GAS ART SITE RIGHT BRACHIAL; ARTERIAL BLOOD GAS DELIVERY VENT; ARTERIAL BLOOD GAS VENT MODE AC; ARTERIAL DRAW? YES
[2016-07-31 04:12] LABS: BASOPHIL# 0.2 X10e3 (0-0.3); BASOPHIL% 0.8 % (0-2.5); HEMATOCRIT 27.7 % (38.0-50.0); HEMOGLOBIN 8.8 gm/dL (13.0-16.0); LYMPHOCYTE# 0.3 X10e3 (1.0-3.5); LYMPHOCYTE% 1.8 % (17.0-45.0); MEAN CELL VOLUME 84.1 FL (83-96); MEAN CORPUSCULAR HEMOGLOBIN 26.8 PG (28-34); MEAN CORPUSCULAR HGB CONC 31.9 g/dL (30-36); MEAN PLATELET VOLUME 7.9 FL (6.5-11.5); MONOCYTE# 1.3 X10e3 (0-1.0); MONOCYTE% 6.8 % (3.0-12.0); NEUTROPHIL# 17.7 X10e3 (1.5-7.1); NEUTROPHIL% 90.6 % (40-75); PLATELET COUNT 258 X10e3 (140-420); RED BLOOD COUNT 3.29 X10e (3.90-5.60); RED CELL DISTRIBUTION WIDTH 20.9 % (11.0-15.5); WHITE BLOOD COUNT 19.5 X10e3 (4.0-10.5)
[2016-07-31 04:14] LABS: DIFF IND NO
[2016-07-31 04:16] LABS: ARTERIAL BLD GAS O2 SATURATION 96.3 % (90.0-100.0); ARTERIAL BLOOD GAS HCO3 19.8 mmol/L; ARTERIAL BLOOD GAS PCO2 37.4 mmHg (35.0-45.0); ARTERIAL BLOOD GAS pH 7.333 (7.350-7.450)
[2016-07-31 04:17] LABS: ARTERIAL BLOOD GAS ART SITE RIGHT BRACHIAL; ARTERIAL BLOOD GAS CARBOXY HB 0.6 %sat (0.0-9.0); ARTERIAL BLOOD GAS DELIVERY VENT; ARTERIAL BLOOD GAS MET HB 0.9 %sat (0.0-2.0); ARTERIAL BLOOD GAS VENT MODE AC; ARTERIAL DRAW? YES
[2016-07-31 04:32] LABS: BILIRUBIN,TOTAL 1.1 mg/dL (0.2-2.0); BUN/CREATININE RATIO 24.54; CALCIUM SERUM 7.4 mg/dL (8.4-10.2); CREATININE SERUM 1.1 mg/dL (0.6-1.4); GLOM FILT RATE Estimated 68.6 mL/min (>60); POTASSIUM 3.5 mmol/L (3.5-5.1); PROTEIN TOTAL SERUM 5.5 g/dL (6.0-8.3)
[2016-07-31 17:47] LABS: %MB 4.7 % (0.0-4.0)
[2016-08-01 04:40] LABS: ARTERIAL BLOOD GAS pH 7.317 (7.350-7.450)
[2016-08-01 04:41] LABS: ARTERIAL BLD GAS O2 SATURATION 84.9 % (90.0-100.0); ARTERIAL BLOOD GAS ART SITE RIGHT FEMORAL; ARTERIAL BLOOD GAS CARBOXY HB 0.9 %sat (0.0-9.0); ARTERIAL BLOOD GAS DELIVERY VENT; ARTERIAL BLOOD GAS HCO3 18.2 mmol/L; ARTERIAL BLOOD GAS MET HB 0.7 %sat (0.0-2.0); ARTERIAL BLOOD GAS PCO2 35.5 mmHg (35.0-45.0); ARTERIAL BLOOD GAS PO2 50.5 mmHg (80.0-100); ARTERIAL BLOOD GAS VENT MODE AC; ARTERIAL DRAW? YES
[2016-08-01 05:40] LABS: HEMATOCRIT 25.7 % (38.0-50.0); HEMOGLOBIN 8.1 gm/dL (13.0-16.0); MEAN CELL VOLUME 85.1 FL (83-96); MEAN CORPUSCULAR HEMOGLOBIN 26.7 PG (28-34); MEAN CORPUSCULAR HGB CONC 31.4 g/dL (30-36); MEAN PLATELET VOLUME 7.8 FL (6.5-11.5); RED BLOOD COUNT 3.02 X10e (3.90-5.60); RED CELL DISTRIBUTION WIDTH 21.1 % (11.0-15.5); WHITE BLOOD COUNT 13.9 X10e3 (4.0-10.5)
[2016-08-01 06:39] LABS: ALBUMIN SERUM 1.7 g/dL (3.5-5.0); BILIRUBIN,TOTAL 0.6 mg/dL (0.2-2.0); BUN/CREATININE RATIO 17.64; CALCIUM SERUM 6.9 mg/dL (8.4-10.2); CREATININE SERUM 1.7 mg/dL (0.6-1.4); GLOM FILT RATE Estimated 40.6 mL/min (>60); POTASSIUM 3.5 mmol/L (3.5-5.1); PROTEIN TOTAL SERUM 4.7 g/dL (6.0-8.3)
[2016-08-01 10:19] LABS: ARTERIAL BLOOD GAS PCO2 36.5 mmHg (35.0-45.0); ARTERIAL BLOOD GAS PO2 86.9 mmHg (80.0-100); ARTERIAL BLOOD GAS pH 7.292 (7.350-7.450)
[2016-08-01 10:20] LABS: ARTERIAL BLD GAS O2 SATURATION 96.6 % (90.0-100.0); ARTERIAL BLOOD GAS ALLEN TEST N; ARTERIAL BLOOD GAS ART SITE RIGHT BRACHIAL; ARTERIAL BLOOD GAS CARBOXY HB 0.8 %sat (0.0-9.0); ARTERIAL BLOOD GAS DELIVERY V; ARTERIAL BLOOD GAS HCO3 17.6 mmol/L; ARTERIAL BLOOD GAS VENT MODE AC; ARTERIAL DRAW? YES
[2016-08-01 10:21] LABS: CHOLESTEROL 110 mg/dL (0-200); HDL CHOLESTEROL 47 mg/dL (29-75); LDL CHOLESTEROL 49 mg/dL (-130); LDL/HDL RATIO 1 RATIO (0-4); TRIGLYCERIDES 68 mg/dL (10-160)
[2016-08-02 03:14] LABS: BASOPHIL# 0.1 X10e3 (0-0.3); BASOPHIL% 0.6 % (0-2.5); HEMATOCRIT 19.7 % (38.0-50.0); LYMPHOCYTE# 0.3 X10e3 (1.0-3.5); LYMPHOCYTE% 1.3 % (17.0-45.0); MEAN CELL VOLUME 86.6 FL (83-96); MEAN CORPUSCULAR HEMOGLOBIN 26.7 PG (28-34); MEAN CORPUSCULAR HGB CONC 30.9 g/dL (30-36); MEAN PLATELET VOLUME 8.4 FL (6.5-11.5); MONOCYTE# 0.5 X10e3 (0-1.0); MONOCYTE% 2.3 % (3.0-12.0); NEUTROPHIL# 21.7 X10e3 (1.5-7.1); NEUTROPHIL% 95.8 % (40-75); PLATELET COUNT 180 X10e3 (140-420); RED BLOOD COUNT 2.27 X10e (3.90-5.60); RED CELL DISTRIBUTION WIDTH 21.9 % (11.0-15.5)
[2016-08-02 03:15] LABS: WHITE BLOOD COUNT 22.6 X10e3 (4.0-10.5)
[2016-08-02 03:26] LABS: DIFF IND YES; HEMOGLOBIN 6.1 gm/dL (13.0-16.0)
[2016-08-02 03:31] LABS: ALBUMIN SERUM 1.8 g/dL (3.5-5.0); BILIRUBIN,TOTAL 1.7 mg/dL (0.2-2.0); BUN/CREATININE RATIO 16.66; CALCIUM SERUM 6.5 mg/dL (8.4-10.2); CREATININE SERUM 2.1 mg/dL (0.6-1.4); GLOM FILT RATE Estimated 31.4 mL/min (>60); POTASSIUM 3.7 mmol/L (3.5-5.1); PROTEIN TOTAL SERUM 4.1 g/dL (6.0-8.3)
[2016-08-02 03:36] LABS: %MB 4.1 % (0.0-4.0); MB 3.9 ng/ml
[2016-08-02 03:57] LABS: BURR CELLS PRESENT; NUCLEATED RED BLOOD CELL 7 /100 (0); PLATELET ESTIMATE NORMAL (NORMAL)
[2016-08-02 03:58] LABS: ANISOCYTOSIS MOD; HYPOCHROMIA SL; POIKILOCYTOSIS MOD
[2016-08-02 04:11] LABS: ARTERIAL BLD GAS O2 SATURATION 76.9 % (90.0-100.0); ARTERIAL BLOOD GAS CARBOXY HB 1.1 %sat (0.0-9.0); ARTERIAL BLOOD GAS HCO3 15.4 mmol/L; ARTERIAL BLOOD GAS MET HB 0.9 %sat (0.0-2.0); ARTERIAL BLOOD GAS PCO2 39.3 mmHg (35.0-45.0); ARTERIAL BLOOD GAS PO2 46.6 mmHg (80.0-100); ARTERIAL BLOOD GAS pH 7.203 (7.350-7.450)
[2016-08-02 04:12] LABS: ARTERIAL BLOOD GAS ART SITE LEFT BRACHIAL; ARTERIAL BLOOD GAS DELIVERY VENT; ARTERIAL BLOOD GAS VENT MODE A/C; ARTERIAL DRAW? YES
[2016-08-02 19:02] LABS: HEMATOCRIT 19.1 % (38.0-50.0); MEAN CELL VOLUME 84.4 FL (83-96); MEAN CORPUSCULAR HEMOGLOBIN 26.7 PG (28-34); MEAN CORPUSCULAR HGB CONC 31.6 g/dL (30-36); MEAN PLATELET VOLUME 8.4 FL (6.5-11.5); RED BLOOD COUNT 2.26 X10e (3.90-5.60); RED CELL DISTRIBUTION WIDTH 18.7 % (11.0-15.5); WHITE BLOOD COUNT 18.6 X10e3 (4.0-10.5)
[2016-08-02 23:24] LABS: HEMATOCRIT 23.5 % (38.0-50.0); HEMOGLOBIN 7.6 gm/dL (13.0-16.0)
[2016-08-03 04:33] LABS: ARTERIAL BLOOD GAS HCO3 18.7 mmol/L; ARTERIAL BLOOD GAS PCO2 39.8 mmHg (35.0-45.0)
[2016-08-03 04:34] LABS: ARTERIAL BLOOD GAS ART SITE LEFT BRACHIAL; ARTERIAL BLOOD GAS CARBOXY HB 0.7 %sat (0.0-9.0); ARTERIAL BLOOD GAS DELIVERY VENT; ARTERIAL BLOOD GAS MET HB 0.7 %sat (0.0-2.0); ARTERIAL BLOOD GAS VENT MODE AC; ARTERIAL DRAW? YES
[2016-08-03 05:20] LABS: BASOPHIL# 0.1 X10e3 (0-0.3); BASOPHIL% 0.4 % (0-2.5); HEMATOCRIT 22.4 % (38.0-50.0); HEMOGLOBIN 7.3 gm/dL (13.0-16.0); LYMPHOCYTE# 0.2 X10e3 (1.0-3.5); LYMPHOCYTE% 1.1 % (17.0-45.0); MEAN CELL VOLUME 84.8 FL (83-96); MEAN CORPUSCULAR HEMOGLOBIN 27.5 PG (28-34); MEAN CORPUSCULAR HGB CONC 32.5 g/dL (30-36); MEAN PLATELET VOLUME 8.4 FL (6.5-11.5); MONOCYTE# 0.4 X10e3 (0-1.0); MONOCYTE% 1.8 % (3.0-12.0); NEUTROPHIL# 20.7 X10e3 (1.5-7.1); NEUTROPHIL% 96.7 % (40-75); PLATELET COUNT 115 X10e3 (140-420); RED BLOOD COUNT 2.65 X10e (3.90-5.60); RED CELL DISTRIBUTION WIDTH 17.8 % (11.0-15.5); WHITE BLOOD COUNT 21.5 X10e3 (4.0-10.5)
[2016-08-03 05:35] LABS: DIFF IND NO
[2016-08-03 05:41] LABS: ALBUMIN SERUM 1.4 g/dL (3.5-5.0); BUN/CREATININE RATIO 14.8; CREATININE SERUM 2.5 mg/dL (0.6-1.4); GLOM FILT RATE Estimated 25.4 mL/min (>60); POTASSIUM 3.6 mmol/L (3.5-5.1); PROTEIN TOTAL SERUM 3.6 g/dL (6.0-8.3)
[2016-08-03 05:45] LABS: CALCIUM SERUM 5.8 mg/dL (8.4-10.2)
[2016-08-04 04:36] LABS: ARTERIAL BLD GAS O2 SATURATION 89.8 % (90.0-100.0); ARTERIAL BLOOD GAS ART SITE RIGHT BRACHIAL; ARTERIAL BLOOD GAS DELIVERY VENT; ARTERIAL BLOOD GAS HCO3 17.9 mmol/L; ARTERIAL BLOOD GAS MET HB 1.1 %sat (0.0-2.0); ARTERIAL BLOOD GAS PCO2 33.6 mmHg (35.0-45.0); ARTERIAL BLOOD GAS VENT MODE AC; ARTERIAL BLOOD GAS pH 7.355 (7.350-7.450); ARTERIAL DRAW? YES
[2016-08-04 05:24] LABS: MEAN CELL VOLUME 83.8 FL (83-96); MEAN CORPUSCULAR HGB CONC 33.4 g/dL (30-36); MEAN PLATELET VOLUME 8.4 FL (6.5-11.5); RED BLOOD COUNT 2.26 X10e (3.90-5.60); RED CELL DISTRIBUTION WIDTH 18.4 % (11.0-15.5); WHITE BLOOD COUNT 17.4 X10e3 (4.0-10.5)
[2016-08-04 05:32] LABS: HEMOGLOBIN 6.3 gm/dL (13.0-16.0)
[2016-08-04 06:13] LABS: ALBUMIN SERUM 1.4 g/dL (3.5-5.0); BILIRUBIN,TOTAL 1.5 mg/dL (0.2-2.0); BUN/CREATININE RATIO 14.28; CREATININE SERUM 2.8 mg/dL (0.6-1.4); GLOM FILT RATE Estimated 22.2 mL/min (>60); MAGNESIUM 1.7 mg/dL (1.6-3.0); POTASSIUM 3.7 mmol/L (3.5-5.1); PROTEIN TOTAL SERUM 3.6 g/dL (6.0-8.3)
[2016-08-04 06:24] LABS: CALCIUM SERUM 5.7 mg/dL (8.4-10.2)
== END 2016-08-04 14:04 | disposition expired | DRG 207 ==
LOC: CED 10:38 → CICCU2 14:00 → CEDOF 14:00 → CED 14:53 → CEDOF 16:53 → C3A PCU 16:53 → CICCU3 07-31 00:12 → CICCU2 07-31 21:19
PROVIDERS: Emergency Medicine; Family Medicine; Family Medicine Sleep Medicine; Hospitalist; Internal Medicine; Internal Medicine Cardiovascular Disease; Internal Medicine Nephrology; Physician Assistant Medical
PROC: 30233N1 Transfusion of Nonautologous Red Blood Cells into Peripheral Vein, Percutaneous Approach (ICD-10-PCS; 2016-07-27)
PROC: 0DJ08ZZ Inspection of Upper Intestinal Tract, Via Natural or Artificial Opening Endoscopic (ICD-10-PCS; 2016-07-28)
PROC: 0BH17EZ Insertion of Endotracheal Airway into Trachea, Via Natural or Artificial Opening (ICD-10-PCS; principal; 2016-07-31)
PROC: 5A1955Z Respiratory Ventilation, Greater than 96 Consecutive Hours (ICD-10-PCS; 2016-07-31)
PROC: B24BYZZ Ultrasonography of Heart with Aorta using Other Contrast (ICD-10-PCS; 2016-08-01)
PROC: 0W9930Z Drainage of Right Pleural Cavity with Drainage Device, Percutaneous Approach (ICD-10-PCS; 2016-08-01)
DX: J96.01 Acute respiratory failure with hypoxia (principal); J69.0 Pneumonitis due to inhalation of food and vomit; L89.154 Pressure ulcer of sacral region, stage 4; N17.9 Acute kidney failure, unspecified; A41.9 Sepsis, unspecified organism; E87.2 Acidosis; N39.0 Urinary tract infection, site not specified; J98.11 Atelectasis; J93.9 Pneumothorax, unspecified; I10 Essential (primary) hypertension; E78.5 Hyperlipidemia, unspecified; J44.9 Chronic obstructive pulmonary disease, unspecified; Z79.82 Long term (current) use of aspirin; I48.0 Paroxysmal atrial fibrillation; K21.9 Gastro-esophageal reflux disease without esophagitis; Z85.46 Personal history of malignant neoplasm of prostate; M19.90 Unspecified osteoarthritis, unspecified site; F03.90 Unspecified dementia, unspecified severity, without behavioral disturbance, psychotic disturbance, mood disturbance, and anxiety; M10.9 Gout, unspecified; Z87.891 Personal history of nicotine dependence; D50.9 Iron deficiency anemia, unspecified; K22.0 Achalasia of cardia; R74.9 Abnormal serum enzyme level, unspecified; Z66 Do not resuscitate; Z51.5 Encounter for palliative care
CPT/HCPCS: 36415; 36600; 70450; 71010; 74000; 76705; 80048; 80053; 80061; 80076; 80200; 80202; 81003; 82140; 82150; 82274; 82550; 82553; 82607; 82728; 82746; 82803; 83540; 83550; 83605; 83690; 83735; 83880; 84100; 84484; 85014; 85018; 85025; 85027; 85610; 85730; 86850; 86900; 86901; 86923; 87040; 87070; 87086; 87205; 92610; 93005; 93306; 94002; 94003; 94640; 94760; 94761; 99285; C9113; G8996-GN; G8997-GN; G8998-GN; J0171; J0610; J1650; J1940; J2060; J2250; J2270; J2370; J2543; J2920; J3010; J3260; J3370; J3475; P9016; P9047